=== PATIENT | female | born 1950 | race Caucasian/White ===

== ENCOUNTER → 2016-08-03 | Outpatient (CLI) | payer OTHER ==
--- NOTE | 2016-08-03 09:49 | CT ---
EXAMINATION TYPE: CT ChestAbdPelvis w con DATE OF EXAM: 08/03/2016 9:40 AM COMPARISON: 04/20/2016 HISTORY: Patient complains of RUQ pain. Patient has had multiple surgeries in the liver area includi ng partial hepatectomy. CT DLP: 2030 mGycm CONTRAST: CT scan of the chest, abdomen and pelvis is performed with Oral Contrast and with IV Contrast, patien t injected with 100 mL of Omnipaque 300. CT Chest: LUNGS: The lungs are clear and free of infiltrate or atelectasis. Stable right lower lobe pulmonary n odules measuring up to 5 mm. No new nodules identified. Mild upper lobe emphysematous changes appreci ated. No pleural effusion or CT evidence of interstitial lung disease. MEDIASTINUM: Thoracic aorta is of normal caliber. The heart is not enlarged. No evidence for media stinal mass or adenopathy. HILAR STRUCTURES: No evidence for mass. No hilar adenopathy is appreciated. OTHER: No significant abnormality. CONTRAST CT ABDOMEN AND PELVIS FINDINGS: LIVER/GB: Again noted are hepatectomy changes left hepatic lobe. Cholecystectomy clips are in place. Resolution of pneumobilia seen previously. No evidence for mass or biliary ductal dilatation at this time. PANCREAS: No inflammation. No distinct mass. SPLEEN: No splenic enlargement. No lesion seen. ADRENALS: No nodule. No thickening. KIDNEYS/BLADDER: No hydronephrosis. No nephrolithiasis. No disctinct renal mass. BOWEL: Normal appendix. Normal bowel caliber. No inflammation. GENITAL ORGANS: No gross abnormality. LYMPH NODES: No greater than 1cm abdominal or pelvic lymph nodes are appreciated. AORTA: Nonaneurysmal atheromatous changes abdominal aorta. OSSEOUS STRUCTURES: No significant abnormality is seen. OTHER: Fat-containing ventral hernia is unchanged. IMPRESSION: 1. Postoperative changes of the liver without evidence for recurrent or residual mass. 2. Stable right lower lobe pulmonary nodules.
== END | disposition home or self-care (01) ==
LOC: RADCTMAIN 08:37
PROVIDERS: ATTEND Internal Medicine Hematology & Oncology
DX: C24.9 Malignant neoplasm of biliary tract, unspecified (principal); R91.1 Solitary pulmonary nodule; Z98.890 Other specified postprocedural states
CPT/HCPCS: 71260; 74177; Q9967

== ENCOUNTER → 2016-11-09 | Outpatient (CLI) | payer OTHER ==
--- NOTE | 2016-11-09 08:44 | CT ---
EXAMINATION TYPE: CT ChestAbdPelvis w con DATE OF EXAM: 11/09/2016 8:33 AM COMPARISON: Previous study dated 08/03/2016. 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 TECHNIQUE: Helical acquisition through the abdomen and pelvis was obtained without oral contrast but following the intravenous administration of 100 ml mL of Omnipaque 300. The data was formatted in th e axial, coronal and sagittal projections. FINDINGS: There is a stable 5 mm nodule in this superior segment of the right lower lobe, best seen o n image 38. There is a 9 mm nodule in the posterior basal segment of the right lower lobe best seen o n image 56. This is also stable. No new parenchymal lesion is seen. There is no significant axillary, internal mammary, mediastinal or hilar adenopathy. There is no pleu ral or pericardial fluid. The heart is not enlarged. Within the abdomen, there is been a a left hepatectomy. The gallbladder has been removed. No parenchy mal masses are seen. The spleen is unremarkable. Both adrenal glands appear normal. There is a stable, 1 cm hypoattenuating lesion in the lower pole of the right kidney, this may repres ent a cyst. The pancreas is unremarkable. There is some shotty periaortic adenopathy. No pathologically enlarged retroperitoneal, iliac or ingu inal adenopathy is seen. The uterus is unremarkable. The ovaries are not visualized with certainty. The bladder is unremarkable. There is mucosal thickening involving the distal sigmoid colon. There are scattered diverticula throu ghout the left side of the colon. I do not see radiographic evidence of diverticulitis. The appendix is not visualized. There is a ventral hernia containing fat. The transverse colon is peaking into this. The mouth measur es 4.2 cm. No free fluid and no free air is seen. There is facet arthropathy in the lower lumbar spine. There is minor hypertrophic spondylosis within the dorsal spine. There is moderate atheromatous calcification of the distal abdominal aorta and iliac vessels. IMPRESSION: 1. STABLE RIGHT LOWER LOBE PULMONARY NODULES. 2. POSTSURGICAL CHANGES. 3. NO EVIDENCE OF RECURRENT OR METASTATIC DISEASE. 4. FOCAL COLONIC THICKENING IN THE DISTAL SIGMOID. DIRECT VISUALIZATION WOULD BE SUGGESTED. 5. PROBABLE CYST SMALL CYST IN THE LOWER POLE OF THE RIGHT KIDNEY. 6. VENTRAL HERNIA CONTAINING FAT WITH A MOUTH MEASURING 4.2 CM. 7. DEGENERATIVE CHANGES WITHIN THE SPINE.
== END | disposition home or self-care (01) ==
LOC: RADCTMAIN 07:24
PROVIDERS: ATTEND Internal Medicine Hematology & Oncology
DX: R91.1 Solitary pulmonary nodule (principal); C24.8 Malignant neoplasm of overlapping sites of biliary tract; J98.4 Other disorders of lung; K43.9 Ventral hernia without obstruction or gangrene; K63.89 Other specified diseases of intestine; Z98.890 Other specified postprocedural states; Z88.0 Allergy status to penicillin; Z88.5 Allergy status to narcotic agent; Z88.2 Allergy status to sulfonamides; Z88.8 Allergy status to other drugs, medicaments and biological substances
CPT/HCPCS: 71260; 74177; Q9967

== ENCOUNTER 2016-11-26 09:55 | Emergency (ER) | payer OTHER ==
[2016-11-26] MEDS ORDERED: SODIUM CHLORIDE 0.9% 1,000 ML IV STA ×2 (10:28)
[2016-11-26] MEDS ORDERED: METOCLOPRAMIDE 5 MG/ML 2 ML VIAL IVP STA (10:28)
[2016-11-26] MEDS ORDERED: HYDROmorphone 1 MG/ML 1 ML SYRINGE IVP STA (10:28)
--- NOTE | 2016-11-26 10:33 | ED ---
General Adult HPI - General Chief complaint: Abdominal Pain Stated complaint: diarrhea Time Seen by Provider: 11/26/16 10:07 Source: patient, RN notes reviewed Mode of arrival: ambulatory Limitations: no limitations - History of Present Illness Initial comments: Complaint history of present illness is a 66-year-old female complaint of diarrhea for one week. Also right sided abdominal pain ongoing for months. Significant history patient had hilar cholangiocarcinoma. Follow-up with surgery 11 months ago chemo and radiation. No nausea no vomiting chest exposed diarrhea - Related Data Home Medications Medication Instructions Recorded Confirmed Cholecalciferol (Vitamin D3) 2,000 unit PO DAILY 11/26/16 11/26/16 [Vitamin D3] Cyanocobalamin [Vitamin B-12] 500 mcg PO DAILY 11/26/16 11/26/16 Ibuprofen [Motrin] 200 mg PO Q6HR PRN 11/26/16 11/26/16 Lysine 500 mg PO DAILY 11/26/16 11/26/16 Vitamin C/Biotin [Hair, Skin and 1 tab PO DAILY 11/26/16 11/26/16 Nails] Allergies Allergy/AdvReac Type Severity Reaction Status Date / Time amoxicillin [From Augmentin] Allergy Unknown Verified 11/26/16 12:51 clavulanic acid Allergy Unknown Verified 11/26/16 12:51 [From Augmentin] Iodinated Contrast Media - Allergy Unknown Verified 11/26/16 12:51 Oral and Sulfa (Sulfonamide Allergy Unknown Verified 11/26/16 12:51 Antibiotics) Review of Systems ROS Statement: Those systems with pertinent positive or pertinent negative responses have been documented in the HPI. Review of systems no visual acuity changes no headache no stiff neck no chest pain or shortness of breath she has discomfort to the right side of the abdomen which is ongoing for several months. For the past week she's had explosive diarrhea. Mild low back discomfort. No difficulty urinating. No rashes. No neuro deficits. All systems are reviewed. 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 Patient also surgeries include appendectomy . Family history heart disease. Patient has seasonal ALLERGIES and certain tapes adhesives. She does smoke she is encouraged to stop. Denies alcohol use ALLERGIES include iodine and Augmentin. ROS Other: All systems not noted in ROS Statement are negative. Past Medical History Past Medical History: Cancer, Liver Disease History of Any Multi-Drug Resistant Organisms: None Reported Past Surgical History: Appendectomy, Section Additional Past Surgical History / Comment(s): liver gallbladder ca surg eye nasel Past Psychological History: No Psychological Hx Reported Smoking Status: Light tobacco smoker Past Alcohol Use History: None Reported Past Drug Use History: None Reported General Exam - General Exam Comments Initial Comments: General: The patient is awake and alert, complains of pain to the right side of the abdomen ongoing for several months as well as explosive diarrhea for 7 days. Vital signs shows temperature 98.2 pulse 92 respiratory rate 18 pulse ox 99% room air blood pressure 158/80 Eye: Pupils are equal, round and reactive to light, extra-ocular movements are intact ; there is normal conjunctiva bilaterally. No signs of icterus. Mild exophthalmus. But the patient does not have thyroid disease per patient. Ears, nose, mouth and throat: There are moist mucous membranes and no oral lesions. Neck: The neck is supple, there is no tenderness . Cardiovascular: There is a regular rate and rhythm. No murmur, rub or gallop is appreciated. Respiratory: Lungs are clear to auscultation, respirations are non-labored, breath sounds are equal. No wheezes, stridor, rales, or rhonchi. Gastrointestinal: Patient complains of pain to the right side of the abdomen. No rebound or referred pain to that general area. Voluntary guarding noted in that area. Patient doesn't allow deep enough palpation. Examination of palpable masses. Back: There is no tenderness to palpation in the midline. There is no obvious deformity. No rashes noted. Musculoskeletal: Normal ROM, no tenderness, There is no pedal edema. There is no calf tenderness or swelling. Sensation intact. Neurological: CN II-XII intact, There are no obvious motor or sensory deficits. Coordination appears grossly intact. Speech is normal. No neuro deficits. Skin: Skin is warm and dry and no rashes or lesions are noted. Limitations: no limitations Course Vital Signs 11/26/16 11/26/16 11/26/16 09:57 11:42 13:48 Temperature 98.2 F 97.6 F Pulse Rate 92 87 69 Respiratory 18 18 16 Rate Blood Pressure 158/80 137/73 130/67 O2 Sat by Pulse 99 98 99 Oximetry Medical Decision Making - Medical Decision Making Medical decision-making the patient is receiving IV hydration. The patient's labs show white count of 6.1 hemoglobin 13 hematocrit of 40 with a potassium 4.7 BUN 8 creatinine 0.8 GFR greater than 60. Glucose 145. Amylase lipase within normal limits lactic acid elevated the patient be rehydrated. Urine was clean no signs of infection. X-ray of the abdomen was done reviewed by radiologist his final impression is nonacute abdomen as read by Dr. Beatty The patient was reevaluated and states she feels much better sitting up in bed leaning forward talking her wants to go home at this time. Denying abdominal pain at this time . We did discuss continue with her fluids. Her stool for C. diff negative. She will be trying Pepto-Bismol today and Imodium to be added tomorrow as needed. The patient is to return emergency room if she develops a fever or any other problems otherwise call follow up with her family physician, and her oncologist. Still waiting for cultures of the stool to come back. - Lab Data Result diagrams: 11/26/16 11:35 11/26/16 11:35 Lab Results 11/26/16 11/26/16 11/26/16 Range/Units 10:55 11:35 11:35 WBC 6.1 (3.8-10.6) k/uL RBC 4.44 (3.80-5.40) m/uL Hgb 13.9 (11.4-16.0) gm/dL Hct 40.7 (34.0-46.0) % MCV 91.7 (80.0-100.0) fL MCH 31.4 (25.0-35.0) pg MCHC 34.2 (31.0-37.0) g/dL RDW 13.5 (11.5-15.5) % Plt Count 129 L (150-450) k/uL Neutrophils % 76 % Lymphocytes % 12 % Monocytes % 7 % Eosinophils % 4 % Basophils % 1 % Neutrophils # 4.7 (1.3-7.7) k/uL Lymphocytes # 0.7 L (1.0-4.8) k/uL Monocytes # 0.4 (0-1.0) k/uL Eosinophils # 0.2 (0-0.7) k/uL Basophils # 0.0 (0-0.2) k/uL Sodium 140 (137-145) mmol/L Potassium 4.7 (3.5-5.1) mmol/L Chloride 110 H (98-107) mmol/L Carbon Dioxide 22 (22-30) mmol/L Anion Gap 8 mmol/L BUN 8 (7-17) mg/dL Creatinine 0.80 (0.52-1.04) mg/dL Est GFR (MDRD) Af Amer >60 (>60 ml/min/1.73 sqM) Est GFR (MDRD) Non-Af >60 (>60 ml/min/1.73 sqM) Glucose 145 H (74-99) mg/dL Plasma Lactic Acid Faizan (0.7-2.0) mmol/L Calcium 9.0 (8.4-10.2) mg/dL Total Bilirubin 0.7 (0.2-1.3) mg/dL AST 28 (14-36) U/L ALT 31 (9-52) U/L Alkaline Phosphatase 78 (38-126) U/L Total Protein 6.5 (6.3-8.2) g/dL Albumin 3.8 (3.5-5.0) g/dL Amylase 42 (30-110) U/L Lipase 90 (23-300) U/L Urine Color Light Yellow Urine Appearance Clear (Clear) Urine pH 5.5 (5.0-8.0) Ur Specific [place] 1.002 (1.001-1.035) Urine Protein Negative (Negative) Urine Glucose (UA) Negative (Negative) Urine Ketones Negative (Negative) Urine Blood Negative (Negative) Urine Nitrite Negative (Negative) Urine Bilirubin Negative (Negative) Urine Urobilinogen <2.0 (<2.0) mg/dL Ur Leukocyte Esterase Negative (Negative) C. difficile (EIA) Intrp (Negative) 11/26/16 11/26/16 Range/Units 11:35 11:50 WBC (3.8-10.6) k/uL RBC (3.80-5.40) m/uL Hgb (11.4-16.0) gm/dL Hct (34.0-46.0) % MCV (80.0-100.0) fL MCH (25.0-35.0) pg MCHC (31.0-37.0) g/dL RDW (11.5-15.5) % Plt Count (150-450) k/uL Neutrophils % % Lymphocytes % % Monocytes % % Eosinophils % % Basophils % % Neutrophils # (1.3-7.7) k/uL Lymphocytes # (1.0-4.8) k/uL Monocytes # (0-1.0) k/uL Eosinophils # (0-0.7) k/uL Basophils # (0-0.2) k/uL Sodium (137-145) mmol/L Potassium (3.5-5.1) mmol/L Chloride (98-107) mmol/L Carbon Dioxide (22-30) mmol/L Anion Gap mmol/L BUN (7-17) mg/dL Creatinine (0.52-1.04) mg/dL Est GFR (MDRD) Af Amer (>60 ml/min/1.73 sqM) Est GFR (MDRD) Non-Af (>60 ml/min/1.73 sqM) Glucose (74-99) mg/dL Plasma Lactic Acid Faizan 3.0 H* (0.7-2.0) mmol/L Calcium (8.4-10.2) mg/dL Total Bilirubin (0.2-1.3) mg/dL AST (14-36) U/L ALT (9-52) U/L Alkaline Phosphatase (38-126) U/L Total Protein (6.3-8.2) g/dL Albumin (3.5-5.0) g/dL Amylase (30-110) U/L Lipase (23-300) U/L Urine Color Urine Appearance (Clear) Urine pH (5.0-8.0) Ur Specific [place] (1.001-1.035) Urine Protein (Negative) Urine Glucose (UA) (Negative) Urine Ketones (Negative) Urine Blood (Negative) Urine Nitrite (Negative) Urine Bilirubin (Negative) Urine Urobilinogen (<2.0) mg/dL Ur Leukocyte Esterase (Negative) C. difficile (EIA) Intrp Negative (Negative) Disposition Clinical Impression: Diarrhea Disposition: HOME SELF-CARE Condition: Stable Instructions: Dehydration (ED), Acute Diarrhea (ED) Additional Instructions: Continue with advancing fluids. Use Pepto-Bismol. Use Imodium after 24 hours as needed. Return to the be signs of an fever or discomfort. Otherwise follow- up with family physician and your oncologist. Referrals: Breann Morrison MD [Primary Care Provider] - 1-2 days Time of Disposition: 14:14
[2016-11-26 11:13] LABS: Appearance,Urine Clear (Clear); Bilirubin,Urine Negative (Negative); Glucose,Urine (UA) Negative (Negative); Ketones,Urine Negative (Negative); Leukocyte Esterase,Urine Negative (Negative); Nitrite,Urine Negative (Negative); PH, Urine 5.5 (5.0-8.0); Protein,Urine Negative (Negative); Specific Gravity,Urine 1.002 (1.001-1.035); UA Billing (MACRO vs. MICRO) CHEM; Urobilinogen,Urine <2.0 mg/dL (<2.0)
[2016-11-26 11:48] LABS: Basophils % (A) 1 %; CH 30.9; CHCM 33.9; Eosinophils # (A) 0.2 k/uL (0-0.7); Eosinophils % (A) 4 %; HCT 40.7 % (34.0-46.0); HDW 2.71; HGB 13.9 gm/dL (11.4-16.0); Luc # (Auto) 0.09; Luc % (Auto) 1; Lymphocytes # (A) 0.7 k/uL (1.0-4.8); Lymphocytes % (A) 12 %; MCH 31.4 pg (25.0-35.0); MCHC 34.2 g/dL (31.0-37.0); MCV 91.7 fL (80.0-100.0); Mean Platelet Volume 7.3; Monocytes # (A) 0.4 k/uL (0-1.0); Monocytes % (A) 7 %; Neutrophils # (A) 4.7 k/uL (1.3-7.7); Neutrophils % (A) 76 %; RBC 4.44 m/uL (3.80-5.40); RDW 13.5 % (11.5-15.5); WBC 6.1 k/uL (3.8-10.6); WBC (Perox) 6.42
[2016-11-26 11:58] LABS: ALT 31 U/L (9-52); AST 28 U/L (14-36); Alkaline Phosphatase 78 U/L (38-126); Amylase 42 U/L (30-110); Anion Gap 8 mmol/L; Blood Urea Nitrogen 8 mg/dL (7-17); Carbon Dioxide 22 mmol/L (22-30); Chloride 110 mmol/L (98-107); Glucose 145 mg/dL (74-99); Non-African American GFR(MDRD) >60 (>60 ml/min/1.73 sqM); Potassium 4.7 mmol/L (3.5-5.1); Sodium 140 mmol/L (137-145); Total Bilirubin 0.7 mg/dL (0.2-1.3); Total Protein 6.5 g/dL (6.3-8.2)
--- NOTE | 2016-11-26 12:08 | XR ---
EXAMINATION TYPE: XR abdomen 2V DATE OF EXAM: 11/26/2016 12:03 PM COMPARISON: None HISTORY: Abdominal pain TECHNIQUE: 2 views FINDINGS: Bowel gas pattern is normal. There is no sign of intestinal obstruction or pneumoperitoneum . Fecal pattern is normal. There are clips from cholecystectomy. Lung bases are clear. There are no p athologic calcifications over the kidneys. IMPRESSION: Nonacute abdomen.
[2016-11-26] MEDS ORDERED: SODIUM CHLORIDE 0.9% 500 ML IV ONE (12:14)
[2016-11-26 14:24] VITALS: BP 142/64; PULSE 67; RESP 18; TEMP 97.7
== END 2016-11-26 14:24 | disposition home or self-care (01) ==
LOC: EC 09:55
DX: R19.7 Diarrhea, unspecified (principal); R10.9 Unspecified abdominal pain; F17.200 Nicotine dependence, unspecified, uncomplicated; Z85.05 Personal history of malignant neoplasm of liver; Z90.49 Acquired absence of other specified parts of digestive tract; Z98.890 Other specified postprocedural states; Z79.899 Other long term (current) drug therapy; Z88.0 Allergy status to penicillin; Z88.2 Allergy status to sulfonamides; Z91.041 Radiographic dye allergy status
CPT/HCPCS: 99284; 36415; 80053; 82150; 83605; 83690; 85025; 81003; 87324; 87086; 87045; 87046; 74020; 96374; 96375; 96361 ×4; J2765; J1170

== ENCOUNTER 2016-11-28 11:14 | Inpatient (IN) | payer OTHER ==
[2016-11-28] MEDS ORDERED: HYDROmorphone 1 MG/ML 1 ML SYRINGE IVP STA (13:20)
[2016-11-28] MEDS ORDERED: SODIUM CHLORIDE 0.9% 1,000 ML IV ONE (13:20)
--- NOTE | 2016-11-28 13:21 | ED ---
Abdominal Pain HPI <Hayden Shen - Last Filed: 11/28/16 15:34> - General Source: patient, RN notes reviewed Mode of arrival: ambulatory Limitations: no limitations <Shelly Kim - Last Filed: 11/28/16 16:16> - General Chief Complaint: Abdominal Pain Stated Complaint: POST OP, PAIN AND DIARRHEA, Ca PATIENT Time Seen by Provider: 11/28/16 12:44 - History of Present Illness Initial Comments: Patient is a 66-year-old female presents emergency room for evaluation abdominal pain and diarrhea. Patient was here on Saturday for abdominal pain and diarrhea. Patient states she was sent home after given 2 L of fluids. Patient states she has hilar cholangiocarcinoma. Patient states she had surgical removal about 11 months ago. Patient states she also had radiation and chemotherapy. Patient states within 4 months of radiation/chemotherapy she began developing right lower quadrant pain. Patient states she has CT scans every 3 months. Patient states her last computed tomography scan was about 3 weeks ago. Patient states she followed up with Dr. Cleary about 2 weeks ago and was told that there were no abnormal findings. Patient states she still continued to have the right lower quadrant pain. Patient states after she was discharged on Saturday she was continuing to have pain and diarrhea. Patient states been taking Pepto-Bismol with little relief of symptoms. Patient states she called Dr. Cleary today and was told that she needs to come to the hospital to be admitted. She states she is having diarrhea multiple times during the day. Patient states she feels like she is dehydrated again. Patient states she is having 9 out of 10 right lower quadrant pain is worse with movement and pressing over the area. Patient denies fevers or chills. Patient denies nausea vomiting. Patient denies chest pain or shortness of breath. (Shelly Kim) - Related Data Home Medications Medication Instructions Recorded Confirmed Cholecalciferol (Vitamin D3) 2,000 unit PO DAILY 11/26/16 11/28/16 [Vitamin D3] Cyanocobalamin [Vitamin B-12] 500 mcg PO DAILY 11/26/16 11/28/16 Ibuprofen [Motrin] 200 mg PO Q6HR PRN 11/26/16 11/28/16 Lysine 500 mg PO DAILY 11/26/16 11/28/16 Vitamin C/Biotin [Hair, Skin and 1 tab PO DAILY 11/26/16 11/28/16 Nails] Allergies Allergy/AdvReac Type Severity Reaction Status Date / Time amoxicillin [From Augmentin] Allergy Unknown Verified 11/28/16 12:07 clavulanic acid Allergy Unknown Verified 11/28/16 12:07 [From Augmentin] Iodinated Contrast Media - Allergy Unknown Verified 11/28/16 12:07 Oral and Sulfa (Sulfonamide Allergy Unknown Verified 11/28/16 12:07 Antibiotics) Review of Systems ROS Other: All systems not noted in ROS Statement are negative. <Hayden Shen - Last Filed: 11/28/16 15:34> ROS Other: All systems not noted in ROS Statement are negative. <Shelly Kim - Last Filed: 11/28/16 16:16> ROS Statement: Those systems with pertinent positive or pertinent negative responses have been documented in the HPI. Past Medical History Past Medical History: Cancer, Liver Disease History of Any Multi-Drug Resistant Organisms: None Reported Past Surgical History: Appendectomy, Section Additional Past Surgical History / Comment(s): liver gallbladder ca surg , eye , nasal Past Psychological History: No Psychological Hx Reported Smoking Status: Light tobacco smoker Past Alcohol Use History: None Reported Past Drug Use History: None Reported <Shelly Kim - Last Filed: 11/28/16 16:16> General Exam <Hayden Shen - Last Filed: 11/28/16 15:34> Limitations: no limitations General appearance: alert, in no apparent distress Head exam: Present: atraumatic, normocephalic, normal inspection Eye exam: Present: normal appearance ENT exam: Present: normal exam Neck exam: Present: normal inspection Respiratory exam: Present: normal lung sounds bilaterally. Absent: respiratory distress Cardiovascular Exam: Present: regular rate, normal rhythm, normal heart sounds GI/Abdominal exam: Present: soft, tenderness (Right lower quadrant), normal bowel sounds. Absent: distended, guarding, rebound, rigid Extremities exam: Present: normal inspection Back exam: Present: normal inspection Neurological exam: Present: alert, oriented X3, CN II-XII intact, normal gait Psychiatric exam: Present: normal affect, normal mood Skin exam: Present: warm, dry, intact, normal color. Absent: rash <Shelly Kim - Last Filed: 11/28/16 16:16> - General Exam Comments Initial Comments: sitting in exam room, no acute distress. (Shelly Kim) Medical Decision Making - Lab Data Result diagrams: 11/28/16 12:20 11/28/16 12:20 <Hayden Shen - Last Filed: 11/28/16 15:34> - Lab Data Result diagrams: 11/28/16 12:20 11/28/16 12:20 <Shelly Kim - Last Filed: 11/28/16 16:16> - Medical Decision Making Medical decision-making. The patient was reexamined with mild tenderness to right lower quadrant. The patient was examined and interviewed by Dr. Evans. Patient will be admitted to his partner Dr. Rivera her period started on Flagyl. With repeat C. diff. He is also requesting a consultation from Dr. Lopez, the patient's general surgeon who has done colonoscopy on her in the past. Dr. Shen (Hayden Shen) - Lab Data Lab Results 11/28/16 11/28/16 11/28/16 Range/Units 11:50 12:20 12:20 WBC 4.6 (3.8-10.6) k/uL RBC 4.52 (3.80-5.40) m/uL Hgb 13.9 (11.4-16.0) gm/dL Hct 42.8 (34.0-46.0) % MCV 94.7 (80.0-100.0) fL MCH 30.6 (25.0-35.0) pg MCHC 32.4 (31.0-37.0) g/dL RDW 14.0 (11.5-15.5) % Plt Count 140 L (150-450) k/uL Neutrophils % 72 % Lymphocytes % 14 % Monocytes % 8 % Eosinophils % 4 % Basophils % 1 % Neutrophils # 3.3 (1.3-7.7) k/uL Lymphocytes # 0.7 L (1.0-4.8) k/uL Monocytes # 0.3 (0-1.0) k/uL Eosinophils # 0.2 (0-0.7) k/uL Basophils # 0.0 (0-0.2) k/uL Sodium (137-145) mmol/L Potassium (3.5-5.1) mmol/L Chloride (98-107) mmol/L Carbon Dioxide (22-30) mmol/L Anion Gap mmol/L BUN (7-17) mg/dL Creatinine (0.52-1.04) mg/dL Est GFR (MDRD) Af Amer (>60 ml/min/1.73 sqM) Est GFR (MDRD) Non-Af (>60 ml/min/1.73 sqM) Glucose (74-99) mg/dL Plasma Lactic Acid Faizan (0.7-2.0) mmol/L Calcium (8.4-10.2) mg/dL Total Bilirubin (0.2-1.3) mg/dL AST (14-36) U/L ALT (9-52) U/L Alkaline Phosphatase (38-126) U/L Total Protein (6.3-8.2) g/dL Albumin (3.5-5.0) g/dL Amylase (30-110) U/L Lipase 87 (23-300) U/L Urine Color Colorless Urine Appearance Clear (Clear) Urine pH 5.5 (5.0-8.0) Ur Specific [place] 1.002 (1.001-1.035) Urine Protein Negative (Negative) Urine Glucose (UA) Negative (Negative) Urine Ketones Negative (Negative) Urine Blood Negative (Negative) Urine Nitrite Negative (Negative) Urine Bilirubin Negative (Negative) Urine Urobilinogen <2.0 (<2.0) mg/dL Ur Leukocyte Esterase Negative (Negative) 11/28/16 11/28/16 Range/Units 12:20 12:20 WBC (3.8-10.6) k/uL RBC (3.80-5.40) m/uL Hgb (11.4-16.0) gm/dL Hct (34.0-46.0) % MCV (80.0-100.0) fL MCH (25.0-35.0) pg MCHC (31.0-37.0) g/dL RDW (11.5-15.5) % Plt Count (150-450) k/uL Neutrophils % % Lymphocytes % % Monocytes % % Eosinophils % % Basophils % % Neutrophils # (1.3-7.7) k/uL Lymphocytes # (1.0-4.8) k/uL Monocytes # (0-1.0) k/uL Eosinophils # (0-0.7) k/uL Basophils # (0-0.2) k/uL Sodium 142 (137-145) mmol/L Potassium 3.7 (3.5-5.1) mmol/L Chloride 106 (98-107) mmol/L Carbon Dioxide 26 (22-30) mmol/L Anion Gap 10 mmol/L BUN 8 (7-17) mg/dL Creatinine 0.66 (0.52-1.04) mg/dL Est GFR (MDRD) Af Amer >60 (>60 ml/min/1.73 sqM) Est GFR (MDRD) Non-Af >60 (>60 ml/min/1.73 sqM) Glucose 90 (74-99) mg/dL Plasma Lactic Acid Faizan 0.8 (0.7-2.0) mmol/L Calcium 9.2 (8.4-10.2) mg/dL Total Bilirubin 0.6 (0.2-1.3) mg/dL AST 33 (14-36) U/L ALT 41 (9-52) U/L Alkaline Phosphatase 86 (38-126) U/L Total Protein 6.6 (6.3-8.2) g/dL Albumin 3.8 (3.5-5.0) g/dL Amylase 42 (30-110) U/L Lipase (23-300) U/L Urine Color Urine Appearance (Clear) Urine pH (5.0-8.0) Ur Specific [place] (1.001-1.035) Urine Protein (Negative) Urine Glucose (UA) (Negative) Urine Ketones (Negative) Urine Blood (Negative) Urine Nitrite (Negative) Urine Bilirubin (Negative) Urine Urobilinogen (<2.0) mg/dL Ur Leukocyte Esterase (Negative) Disposition <Hayden Shen - Last Filed: 11/28/16 15:34> Decision Date: 11/28/16 <Shelly Kim - Last Filed: 11/28/16 16:16> Clinical Impression: Colitis presumed to be due to infection Disposition: ADMITTED IP TO THIS [facility] Condition: Stable
[2016-11-28 14:04] LABS: Basophils % (A) 1 %; CH 31.1; Eosinophils # (A) 0.2 k/uL (0-0.7); Eosinophils % (A) 4 %; HCT 42.8 % (34.0-46.0); HDW 2.59; HGB 13.9 gm/dL (11.4-16.0); Luc # (Auto) 0.07; Luc % (Auto) 2; Lymphocytes # (A) 0.7 k/uL (1.0-4.8); Lymphocytes % (A) 14 %; MCH 30.6 pg (25.0-35.0); MCHC 32.4 g/dL (31.0-37.0); MCV 94.7 fL (80.0-100.0); Mean Platelet Volume 7.7; Monocytes # (A) 0.3 k/uL (0-1.0); Monocytes % (A) 8 %; Neutrophils # (A) 3.3 k/uL (1.3-7.7); Neutrophils % (A) 72 %; RBC 4.52 m/uL (3.80-5.40); WBC 4.6 k/uL (3.8-10.6); WBC (Perox) 4.52
[2016-11-28 14:05] LABS: Appearance,Urine Clear (Clear); Bilirubin,Urine Negative (Negative); Glucose,Urine (UA) Negative (Negative); Ketones,Urine Negative (Negative); Leukocyte Esterase,Urine Negative (Negative); Nitrite,Urine Negative (Negative); PH, Urine 5.5 (5.0-8.0); Protein,Urine Negative (Negative); Specific Gravity,Urine 1.002 (1.001-1.035); UA Billing (MACRO vs. MICRO) CHEM; Urobilinogen,Urine <2.0 mg/dL (<2.0)
[2016-11-28 14:14] LABS: ALT 41 U/L (9-52); AST 33 U/L (14-36); Alkaline Phosphatase 86 U/L (38-126); Amylase 42 U/L (30-110); Anion Gap 10 mmol/L; Blood Urea Nitrogen 8 mg/dL (7-17); Calcium 9.2 mg/dL (8.4-10.2); Carbon Dioxide 26 mmol/L (22-30); Chloride 106 mmol/L (98-107); Glucose 90 mg/dL (74-99); Non-African American GFR(MDRD) >60 (>60 ml/min/1.73 sqM); Potassium 3.7 mmol/L (3.5-5.1); Sodium 142 mmol/L (137-145); Total Bilirubin 0.6 mg/dL (0.2-1.3); Total Protein 6.6 g/dL (6.3-8.2)
[2016-11-28 14:30] VITALS: RESP 16
[2016-11-28] MEDS ORDERED: NALOXONE 0.4 MG/ML 1 ML VIAL IV PRN (15:34)
[2016-11-28] MEDS ORDERED: ONDANSETRON 4 MG/2 ML VIAL IVP PRN (15:34)
[2016-11-28] MEDS ORDERED: metroNIDAZOLE-NS PMX 500 MG in SALINE 1 100ML.BAG IVPB STA (15:36)
--- NOTE | 2016-11-28 16:57 | P.HPIM ---
History of Present Illness H&P Date: 11/28/16 Chief Complaint: Abdominal pain, infectious colitis, history of biliary carcinoma, severe di 66-year-old female late 2015 was diagnosed with cholangiocarcinoma ended up going to [facility] had surgery similar to Whipple ended up having wider area resection including gallbladder heart of the liver the biliary tree and part of her gastrointestinal tract. Patient was referred to oncology and has been seen Dr. Cleary all along. She presented to the emergency department on with recurrent diarrhea with abdominal pain and right lower quadrant discomfort. Her abdominal x-ray and lab and lactic acid were elevated but she was hydrated and felt better decided to go home that time. Patient called her oncologist today complaining of recurrent abdominal pain with worsening symptoms having very bad diarrhea with slight bleeding with her diarrhea occasionally. Review her CAT scan showed some colitis around the sigmoid area. With the severity of her symptoms with the recurrent diarrhea and still high suspicion for C. difficile and infectious colitis patient was started on Flagyl IV hydration and admitted to the hospital we'll consult general surgery per her oncologist recommendation. Review of Systems Constitutional: Reports anorexia, Reports fatigue, Reports malaise, Reports weight loss, Denies as per HPI, Denies chills, Denies chronic headaches, Denies chronic pain, Denies daytime sleepiness, Denies fever, Denies lethargy, Denies night sweats, Denies poor appetite, Denies sweats, Denies weakness, Denies weight gain Eyes: bilateral as per HPI Ears: bilateral: decreased hearing Ears, nose, mouth and throat: Reports nasal discharge, Reports sinus pain, Reports sinus pressure, Denies as per HPI, Denies ant. neck pain, Denies bleeding gums, Denies dental pain, Denies dysphagia, Denies epistaxis, Denies headache, Denies hoarseness, Denies mouth pain, Denies nasal congestion, Denies neck fullness/pressure, Denies neck lump, Denies nose pain, Denies odynophagia, Denies post-nasal drip, Denies swelling in mouth, Denies swelling in throat, Denies sore throat, Denies vertigo, Denies voice changes Cardiovascular: Reports orthopnea, Denies as per HPI, Denies chest pain, Denies claudication, Denies decreased exercise tolerance, Denies dyspnea on exertion, Denies edema, Denies high blood pressure, Denies irregular heart beat, Denies leg edema, Denies lightheadedness, Denies palpitations, Denies paroxysmal nocturnal dyspnea, Denies phlebitis, Denies rapid heart beat, Denies shortness of breath, Denies syncope Respiratory: Reports congestion, Reports cough, Reports dyspnea, Denies as per HPI, Denies cough with sputum, Denies excessive sputum, Denies hemoptysis, Denies home oxygen, Denies pain, Denies pain on inspiration, Denies pleurisy, Denies respiratory infections, Denies sleep apnea, Denies snoring, Denies wheezing Gastrointestinal: Reports bloating, Reports diarrhea, Reports dyspepsia, Reports early satiety, Reports excessive gas, Reports heartburn, Reports indigestion, Reports nausea, Reports vomiting, Denies as per HPI, Denies abdominal pain, Denies belching, Denies BRBPR, Denies change in bowel habits, Denies coffee ground emesis, Denies constipation, Denies hematemesis, Denies hematochezia, Denies jaundice, Denies lactose intolerance, Denies loss of appetite, Denies melena Genitourinary: Reports urgency, Reports urinary frequency, Denies as per HPI, Denies abnormal vaginal bleeding, Denies decreased libido, Denies difficulty conceiving, Denies difficulty voiding, Denies dysmenorrhea, Denies dyspareunia, Denies dysuria, Denies flank pain, Denies genital sores, Denies hematuria, Denies hot flashes, Denies incomplete emptying, Denies kidney stones, Denies menorrhagia, Denies mixed incontinence, Denies nocturia, Denies pelvic pain, Denies post void dribbling, Denies , Denies prolapse symptoms, Denies stress incontinence, Denies urge incontinence, Denies vaginal discharge, Denies vaginal dryness, Denies vaginal itching, Denies vaginal odor Musculoskeletal: Reports myalgias, Reports neck pain, Reports neck stiffness, Denies as per HPI, Denies arm numbness/tingling, Denies atrophy, Denies fractures, Denies frequent falls, Denies gait dysfunction, Denies hot joints, Denies leg numbness/tingling, Denies limitation of motion, Denies loss of height , Denies low back pain, Denies morning stiffness, Denies muscle cramps, Denies muscle weakness, Denies prior amputations, Denies redness of joints, Denies shooting arm pain, Denies shooting leg pain Integumentary: Reports dryness, Reports rash, Denies as per HPI, Denies acne, Denies boils, Denies brittle nails, Denies change in hair/nails, Denies color changes, Denies darkening of skin, Denies depigmentation, Denies foot/leg ulcers , Denies growths, Denies hirsutism, Denies lesions, Denies onychomycosis, Denies pruritus, Denies sores, Denies striae, Denies unusual bruising, Denies wounds Neurological: Reports paresthesias, Reports weakness, Denies as per HPI, Denies aphasia, Denies ataxia, Denies balance difficulties, Denies burning pain, Denies change in mentation, Denies change in smell/taste, Denies change in speech, Denies confusion, Denies convulsions, Denies double vision, Denies gait dysfunction, Denies head injury, Denies headaches, Denies hearing difficulties, Denies lack of coordination, Denies loss of vision, Denies memory loss, Denies migraines, Denies motor disturbance, Denies numbness, Denies paralysis, Denies seizures, Denies sensory deficit, Denies spasticity, Denies syncope, Denies tic , Denies tingling, Denies transient paralysis, Denies tremors, Denies vertigo, Denies visual changes Psychiatric: Reports anhedonia, Reports depression, Denies as per HPI, Denies anxiety, Denies anxiety attacks, Denies change in appetite, Denies change in libido, Denies change in sleep habits, Denies confusion, Denies difficulty concentrating, Denies disorientation, Denies hallucinations, Denies hopelessness , Denies hypersomnia, Denies insomnia, Denies irritability, Denies memory loss, Denies mood swings, Denies paranoia, Denies sadness/tearfulness, Denies sleep disturbances, Denies suicidal ideation Endocrine: Reports cold intolerance, Reports fatigue, Denies as per HPI, Denies deepening of the voice, Denies excessive sweating, Denies excessive thirst, Denies flushing, Denies heat intolerance, Denies high blood sugars, Denies increase in ring/shoe/hat size, Denies low blood sugars, Denies nocturia, Denies palpitations, Denies polydipsia, Denies polyphagia, Denies polyuria, Denies proptosis, Denies recent glucocorticoid use, Denies thyroid mass, Denies weight change Hematologic/Lymphatic: Reports easy bruising, Denies as per HPI, Denies easy bleeding, Denies lymphadenopathy, Denies lymphedema, Denies thrombophilia Allergic/Immunologic: Reports allergic rhinitis, Denies as per HPI, Denies anaphylaxis, Denies angioedema, Denies gluten intolerance, Denies persistent infections, Denies seasonal allergies, Denies urticaria, Denies wheezing Past Medical History Past Medical History: Cancer, Liver Disease History of Any Multi-Drug Resistant Organisms: None Reported Past Surgical History: Appendectomy, Section Additional Past Surgical History / Comment(s): liver gallbladder ca surg , eye , nasal Past Psychological History: No Psychological Hx Reported Smoking Status: Light tobacco smoker Past Alcohol Use History: None Reported Past Drug Use History: None Reported Medications and Allergies Home Medications Medication Instructions Recorded Confirmed Type Cholecalciferol (Vitamin D3) 2,000 unit PO DAILY 11/26/16 11/28/16 History [Vitamin D3] Cyanocobalamin [Vitamin B-12] 500 mcg PO DAILY 11/26/16 11/28/16 History Ibuprofen [Motrin] 200 mg PO Q6HR PRN 11/26/16 11/28/16 History Lysine 500 mg PO DAILY 11/26/16 11/28/16 History Vitamin C/Biotin [Hair, Skin and 1 tab PO DAILY 11/26/16 11/28/16 History Nails] Allergies Allergy/AdvReac Type Severity Reaction Status Date / Time amoxicillin [From Augmentin] Allergy Unknown Verified 11/28/16 12:07 clavulanic acid Allergy Unknown Verified 11/28/16 12:07 [From Augmentin] Iodinated Contrast Media - Allergy Unknown Verified 11/28/16 12:07 Oral and Sulfa (Sulfonamide Allergy Unknown Verified 11/28/16 12:07 Antibiotics) Physical Exam Vitals: Vital Signs Temp Pulse Resp BP Pulse Ox 11/28/16 14:29 98 F 85 16 125/69 97 11/28/16 12:55 71 18 171/84 99 11/28/16 11:45 97.9 F 79 20 125/78 98 Intake and Output 11/28/16 11/28/16 11/28/16 06:59 14:59 22:59 Other: Weight 86.183 kg Patient Weight 11/29/16 06:59 Weight 86.183 kg - Constitutional General appearance: no average body habitus, cooperative, no disheveled, no mild distress, no morbidly obese, no acute distress, no obese, no severe distress, no thin - EENT Eyes: no abnormal pupil, no anicteric sclerae, no disc margins sharp, no edentulous, no EOMI, no PERRLA, no fundus normal, no photophobia, no dentition normal, no poor dentition, no ptosis, no scleral icterus, normal appearance ENT: no hard of hearing, no hearing grossly normal, no NA/AT, normal oropharynx , no other, no pharyngeal erythema, no thrush, no tonsillar exudates, no tonsillar swelling Ears: bilateral: normal - Neck Neck: no lymphadenopathy, normal ROM, no other, no rigidity, no stridor, no thyromegaly Carotids: bilateral: upstroke normal Thyroid: bilateral: normal size - Respiratory Respiratory: bilateral: CTA, diminished, dullness - Cardiovascular Rhythm: regular Heart sounds: normal: S1, S2 Abnormal Heart Sounds: systolic murmur - Gastrointestinal Significant discomfort in the mid lower abdominal area and right lower quadrant area with the scar tissue on the right upper quadrant healing well from her last surgery. Also patient had mild epigastric discomfort. General gastrointestinal: no absent bowel sounds, no decreased bowel sounds, distended, no hepatomegaly, no hyperactive bowel sounds, no normal bowel sounds , organomegaly, no rigid, no scaphoid, no soft, no splenomegaly, tenderness, no umbilical hernia, no ventral hernia Localized gastrointestinal: tender: RLQ - Integumentary Integumentary: no calor, no cellulitis, no cyanotic, no decreased turgor, no flushed, no jaundiced, normal, no normal turgor, pale, rash, no ulcer - Neurologic Neurologic: CNII-XII intact - Musculoskeletal Musculoskeletal: gait normal, generalized weakness, strength equal bilaterally, no right sided weakness, no left sided weakness - Psychiatric Psychiatric: A&O x's 3, appropriate affect, no intact judgment & insight Results CBC & Chem 7: 11/28/16 12:20 11/28/16 12:20 Labs: Abnormal Lab Results - Last 24 Hours (Table) 11/28/16 Range/Units 12:20 Plt Count 140 L (150-450) k/uL Lymphocytes # 0.7 L (1.0-4.8) k/uL Thrombosis Risk Factor Assmnt - DVT/VTE Prophylaxis DVT/VTE Prophylaxis: Mechanical Prophylaxis ordered Assessment and Plan Plan: 1 severe abdominal pain: Most likely combination of colitis, infectious versus ischemic or radiation colitis continue Flagyl continue hydration consult Dr. Lopez patient might need colonoscopy. 2 severe diarrhea: With possible if infectious colitis this could be C. difficile versus other infectious colitis. Patient will be on Flagyl IV for now repeat lactic acid Hemoccult and possible need for GI consult. 3 cholangiocarcinoma: Patient had surgery along with chemotherapy and radiation still been follow with her oncologist regularly for any possible metastasis. 4 elevated blood pressure: Continue low-salt diet no medication at this point. 5 severe GERD/GI prophylaxis: Patient will be on pantoprazole IV. 6 vitamin D deficiency: Has been on supplement therapy. 7 DVT prophylaxis: Knee-high JOSEE hose and Venodyne boots don't use any anticoagulation especially with the GI bleed at this point. CODE STATUS: Full code. Expectation from's admission: Patient in the hospital for more than 2 nights.
[2016-11-28 18:29] VITALS: BMI 28.3
[2016-11-28] MEDS: PANTOPRAZOLE 40 MG/10 ML VIAL IVP SCH (21:55)
[2016-11-28] MEDS: HYDROmorphone 1 MG/ML 1 ML SYRINGE IV PRN (22:01)
[2016-11-28] MEDS: SODIUM CHLORIDE 0.9% 1,000 ML IV SCH (22:02)
[2016-11-29] MEDS: metroNIDAZOLE-NS PMX 500 MG in SALINE 1 100ML.BAG IVPB SCH ×4 (00:36→23:48)
[2016-11-29] MEDS ORDERED: diphenhydrAMINE 25 MG CAP PO PRN (02:44)
[2016-11-29] MEDS: SODIUM CHLORIDE 0.9% 1,000 ML IV SCH ×4 (03:35→23:53)
[2016-11-29 08:17] LABS: Basophils % (A) 0 %; CH 30.7; CHCM 33.6; Eosinophils # (A) 0.2 k/uL (0-0.7); Eosinophils % (A) 7 %; HCT 34.8 % (34.0-46.0); HDW 2.74; HGB 11.7 gm/dL (11.4-16.0); Luc # (Auto) 0.07; Luc % (Auto) 2; Lymphocytes # (A) 0.5 k/uL (1.0-4.8); Lymphocytes % (A) 17 %; MCH 30.7 pg (25.0-35.0); MCHC 33.5 g/dL (31.0-37.0); MCV 91.6 fL (80.0-100.0); Mean Platelet Volume 7.4; Monocytes # (A) 0.3 k/uL (0-1.0); Monocytes % (A) 9 %; Neutrophils % (A) 66 %; RDW 13.4 % (11.5-15.5); WBC (Perox) 3.23
[2016-11-29 08:39] LABS: ALT 33 U/L (9-52); AST 25 U/L (14-36); Alkaline Phosphatase 66 U/L (38-126); Anion Gap 7 mmol/L; Blood Urea Nitrogen 8 mg/dL (7-17); Calcium 8.3 mg/dL (8.4-10.2); Carbon Dioxide 23 mmol/L (22-30); Chloride 111 mmol/L (98-107); Glucose 107 mg/dL (74-99); Non-African American GFR(MDRD) >60 (>60 ml/min/1.73 sqM); Potassium 3.5 mmol/L (3.5-5.1); Sodium 141 mmol/L (137-145); Total Bilirubin 0.7 mg/dL (0.2-1.3); Total Protein 5.4 g/dL (6.3-8.2)
[2016-11-29] MEDS: PANTOPRAZOLE 40 MG/10 ML VIAL IVP SCH (09:18)
[2016-11-29] MEDS ORDERED: ACETAMINOPHEN TAB 325 MG TAB PO PRN (11:34)
[2016-11-29] MEDS: HYDROmorphone 1 MG/ML 1 ML SYRINGE IV PRN ×2 (11:37→21:30)
--- NOTE | 2016-11-29 12:39 | P.GSCN ---
History of Present Illness Consult date: 11/29/16 Reason for Consult: Diarrhea abdominal pain. History of present illness: Thank you very much for asking me to see Mrs. Chau. She is a 66-year-old white female who had a colonoscopy by myself about 2 years ago that was unremarkable. Did have some diverticulosis uncomplicated. She in mid 2015 underwent a Cyn duodenectomy and cholecystectomy partial liver resection and bowel resection for cholangiocarcinoma. Underwent chemoradiation subsequently. Her last chemo treatment was sometime in March. She states the since then she's had the persistent pain in the right lower quadrant area. Workup at that time was unremarkable. She controls pain with Tylenol a few times a week which seems to resolve it. Also having a bowel movement seems to make it feel better. She is maintaining her weight all along. She does feel now somewhat weak. Did have over the last week or so diarrhea. At its worst time she would have a bowel movement about every hour or so and often after meals. Did present to the emergency room a few days ago workup including CAT scan did show evidence of some inflammatory changes in the sigmoid area consistent with probably a colitis type picture. She took Pepto-Bismol full dose of several days ago which stopped the diarrhea completely but however she had a lot of bloating and cramping or fullness. After about 2 days the diarrhea returned once and she took half a dose of the Pepto-Bismol and she hasn't had a bowel movement now for the last 2 days. Continues however to have the pain in the right lower quadrant which seems to be a little worse than it has been before. No vomiting. He is tolerating a diet. Also quite weak with the being lethargic and no energy to do anything over the last several months now. She's had an appendectomy in the past as well as a . Past history of medical history well-documented. ALLERGIES noted. The ALLERGIC to penicillin and sulfa drugs ciprofloxacin. Social history positive for smoking. Denies ethanol usage. She is and lives at home with her . Systems review as above. No chest pain no respiratory problem. No weight loss. Occasional blood in the toilet paper. No urinary symptoms. On examination the patient is well-built well-nourished weighs about 84 kg with a BMI of 28.3. She is in no double acute distress quite cheerful. Color and hydration is satisfactory she is anicteric. Head and neck otherwise normal. Heart lungs are clear. Abdomen is quite soft has a long right subcostal scar as well as a scar in the right lower quadrant and lower abdomen. Mild tenderness in the right lower quadrant but no guarding or rebound or rigidity no mass or organomegaly noted. The remainder of the abdomen is very soft and benign. [employer] grossly intact. Computed tomography scan was noted. No evidence of metastatic disease. Noted. Some thickening in the sigmoid area. Laboratory studies were noted. Lactic acid level is normal now. WBCs normal. Hemoglobin is down to 11.2. Bilirubin is normal. Urinalysis is unremarkable. Stool studies from her previous the ER visit was negative for C. diff. Or any other bacterial infection. Impression : Recent diarrhea now resolved with Pepto-Bismol with evidence of possible sigmoiditis by computed tomography scan. She is probably nonspecific. Chronic right lower quadrant pain well controlled the over the last the 8 months or so Tylenol periodically. Not sure as to the etiology. Probably secondary to adhesive disease or scarring. History of Cholangiocarcinoma status post pancreaticoduodenectomy. Recommendation agree with current management with IV fluids a soft diet the Will R recheck a stool that she has a diarrheal movement. We will hold off with a colonoscopy since she had one 2 years ago unless the she gets more symptomatic with the diarrhea. We will well continue to follow with you. Appreciate again very much the opportunity to see Mrs. Chau in consultation. Past Medical History Past Medical History: Cancer, Liver Disease History of Any Multi-Drug Resistant Organisms: None Reported Past Surgical History: Appendectomy, Section Additional Past Surgical History / Comment(s): liver gallbladder ca surg , eye , nasal Past Anesthesia/Blood Transfusion Reactions: No Reported Reaction Past Psychological History: No Psychological Hx Reported Smoking Status: Light tobacco smoker Past Alcohol Use History: None Reported Past Drug Use History: None Reported - Past Family History Mother Family Medical History: Coronary Artery Disease (CAD) Medications and Allergies Home Medications Medication Instructions Recorded Confirmed Type Cholecalciferol (Vitamin D3) 2,000 unit PO DAILY 11/26/16 11/28/16 History [Vitamin D3] Cyanocobalamin [Vitamin B-12] 500 mcg PO DAILY 11/26/16 11/28/16 History Ibuprofen [Motrin] 200 mg PO Q6HR PRN 11/26/16 11/28/16 History Lysine 500 mg PO DAILY 11/26/16 11/28/16 History Vitamin C/Biotin [Hair, Skin and 1 tab PO DAILY 11/26/16 11/28/16 History Nails] Allergies Allergy/AdvReac Type Severity Reaction Status Date / Time ciprofloxacin Allergy Intermediate Unknown Verified 11/29/16 11:26 amoxicillin [From Augmentin] Allergy Unknown Verified 11/28/16 12:07 clavulanic acid Allergy Unknown Verified 11/28/16 12:07 [From Augmentin] Iodinated Contrast Media - Allergy Unknown Verified 11/28/16 12:07 Oral and Sulfa (Sulfonamide Allergy Unknown Verified 11/28/16 12:07 Antibiotics) Surgical - Exam Vital Signs Temp Pulse Resp BP Pulse Ox 97.9 F 79 20 125/78 98 11/28/16 11:45 11/28/16 11:45 11/28/16 11:45 11/28/16 11:45 11/28/16 11:45 Results - Labs 11/29/16 07:53 11/29/16 07:53 Abnormal Lab Results - Last 24 Hours (Table) 11/28/16 11/29/16 11/29/16 Range/Units 12:20 07:53 07:53 WBC 3.0 L (3.8-10.6) k/uL Plt Count 140 L 95 L (150-450) k/uL Lymphocytes # 0.7 L 0.5 L (1.0-4.8) k/uL Chloride 111 H (98-107) mmol/L Glucose 107 H (74-99) mg/dL Calcium 8.3 L (8.4-10.2) mg/dL Total Protein 5.4 L (6.3-8.2) g/dL Albumin 2.9 L (3.5-5.0) g/dL Diabetes panel 11/28/16 11/29/16 Range/Units 12:20 07:53 Sodium 142 141 (137-145) mmol/L Potassium 3.7 3.5 (3.5-5.1) mmol/L Chloride 106 111 H (98-107) mmol/L Carbon Dioxide 26 23 (22-30) mmol/L BUN 8 8 (7-17) mg/dL Creatinine 0.66 0.59 (0.52-1.04) mg/dL Glucose 90 107 H (74-99) mg/dL Calcium 9.2 8.3 L (8.4-10.2) mg/dL AST 33 25 (14-36) U/L ALT 41 33 (9-52) U/L Alkaline Phosphatase 86 66 (38-126) U/L Total Protein 6.6 5.4 L (6.3-8.2) g/dL Albumin 3.8 2.9 L (3.5-5.0) g/dL Calcium panel 11/28/16 11/29/16 Range/Units 12:20 07:53 Calcium 9.2 8.3 L (8.4-10.2) mg/dL Albumin 3.8 2.9 L (3.5-5.0) g/dL Pituitary panel 11/28/16 11/29/16 Range/Units 12:20 07:53 Sodium 142 141 (137-145) mmol/L Potassium 3.7 3.5 (3.5-5.1) mmol/L Chloride 106 111 H (98-107) mmol/L Carbon Dioxide 26 23 (22-30) mmol/L BUN 8 8 (7-17) mg/dL Creatinine 0.66 0.59 (0.52-1.04) mg/dL Glucose 90 107 H (74-99) mg/dL Calcium 9.2 8.3 L (8.4-10.2) mg/dL Adrenal panel 11/28/16 11/29/16 Range/Units 12:20 07:53 Sodium 142 141 (137-145) mmol/L Potassium 3.7 3.5 (3.5-5.1) mmol/L Chloride 106 111 H (98-107) mmol/L Carbon Dioxide 26 23 (22-30) mmol/L BUN 8 8 (7-17) mg/dL Creatinine 0.66 0.59 (0.52-1.04) mg/dL Glucose 90 107 H (74-99) mg/dL Calcium 9.2 8.3 L (8.4-10.2) mg/dL Total Bilirubin 0.6 0.7 (0.2-1.3) mg/dL AST 33 25 (14-36) U/L ALT 41 33 (9-52) U/L Alkaline Phosphatase 86 66 (38-126) U/L Total Protein 6.6 5.4 L (6.3-8.2) g/dL Albumin 3.8 2.9 L (3.5-5.0) g/dL
--- NOTE | 2016-11-29 14:59 | P.PN ---
Subjective 66-year-old female late 2015 was diagnosed with cholangiocarcinoma ended up going to [facility] had surgery similar to Whipple ended up having wider area resection including gallbladder heart of the liver the biliary tree and part of her gastrointestinal tract. Patient was referred to oncology and has been seen Dr. Cleary all along. She presented to the emergency department on with recurrent diarrhea with abdominal pain and right lower quadrant discomfort. Her abdominal x-ray and lab and lactic acid were elevated but she was hydrated and felt better decided to go home that time. Patient called her oncologist today complaining of recurrent abdominal pain with worsening symptoms having very bad diarrhea with slight bleeding with her diarrhea occasionally. Review her CAT scan showed some colitis around the sigmoid area. With the severity of her symptoms with the recurrent diarrhea and still high suspicion for C. difficile and infectious colitis patient was started on Flagyl IV hydration and admitted to the hospital we'll consult general surgery per her oncologist recommendation. 11/29:patient has been seen by Dr. Lopez with recommendations to continue conservative management. No plan for colonoscopy now.patient denies any nausea. She states she did eat a soft diet and tolerated this. Pain is at a # 8 out of 10 at its worse and usually at about a 6 out of 10. She does state that she feels better from yesterday. Noted platelets have dropped. she does know that she had a low platelet count when she was at [place] 11 months ago but does not know the underlying cause. Patient developed rash yesterday and Benadryl was added. Objective - Vital Signs Vital signs: Vital Signs Temp 97.7 F 11/29/16 07:00 Pulse 59 L 11/29/16 07:00 Resp 16 11/29/16 07:00 BP 144/82 11/29/16 07:00 Pulse Ox 98 11/29/16 07:00 Intake & Output 11/28/16 11/29/16 11/29/16 18:59 06:59 18:59 Intake Total 990 250 Balance 990 250 Weight 84.368 kg Intake: IV 500 Sodium Chloride 0.9% 1, 400 000 ml @ 100 mls/hr IV . Q10H JASMYNE Rx#:[id number] metroNIDAZOLE-NS PMX 500 100 mg In Saline 1 100ml.bag @ 100 mls/hr IVPB Q8HR JASMYNE Rx#:[id number] Oral 490 250 Other: Voiding Method Toilet Toilet # Voids 1 - Exam General appearance: no average body habitus, cooperative, no disheveled, no mild distress, no morbidly obese, no acute distress, no obese, no severe distress, no thin - EENT Eyes: no abnormal pupil, no anicteric sclerae, no disc margins sharp, no edentulous, no EOMI, no PERRLA, no fundus normal, no photophobia, no dentition normal, no poor dentition, no ptosis, no scleral icterus, normal appearance ENT: no hard of hearing, no hearing grossly normal, no NA/AT, normal oropharynx , no other, no pharyngeal erythema, no thrush, no tonsillar exudates, no tonsillar swelling Ears: bilateral: normal - Neck Neck: no lymphadenopathy, normal ROM, no other, no rigidity, no stridor, no thyromegaly Carotids: bilateral: upstroke normal Thyroid: bilateral: normal size - Respiratory Respiratory: bilateral: CTA, diminished, dullness - Cardiovascular Rhythm: regular Heart sounds: normal: S1, S2 Abnormal Heart Sounds: systolic murmur - Gastrointestinal Significant discomfort in the mid lower abdominal area and right lower quadrant area with the scar tissue on the right upper quadrant healing well from her last surgery. Also patient had mild epigastric discomfort. General gastrointestinal: no absent bowel sounds, no decreased bowel sounds, distended, no hepatomegaly, no hyperactive bowel sounds, no normal bowel sounds , organomegaly, no rigid, no scaphoid, no soft, no splenomegaly, tenderness, no umbilical hernia, no ventral hernia Localized gastrointestinal: tender: RLQ - Integumentary Integumentary: no calor, no cellulitis, no cyanotic, no decreased turgor, no flushed, no jaundiced, normal, no normal turgor, pale, rash, no ulcer - Neurologic Neurologic: CNII-XII intact - Musculoskeletal Musculoskeletal: gait normal, generalized weakness, strength equal bilaterally, no right sided weakness, no left sided weakness - Psychiatric Psychiatric: A&O x's 3, appropriate affect, no intact judgment & insight - Labs CBC & Chem 7: 11/29/16 07:53 11/29/16 07:53 Labs: Abnormal Lab Results - Last 24 Hours (Table) 05/31/17 06/01/17 06/01/17 Range/Units 12:20 07:53 07:53 WBC 3.0 L (3.8-10.6) k/uL Plt Count 140 L 95 L (150-450) k/uL Lymphocytes # 0.7 L 0.5 L (1.0-4.8) k/uL Chloride 111 H (98-107) mmol/L Glucose 107 H (74-99) mg/dL Calcium 8.3 L (8.4-10.2) mg/dL Total Protein 5.4 L (6.3-8.2) g/dL Albumin 2.9 L (3.5-5.0) g/dL Assessment and Plan Plan: 1 severe abdominal pain: Most likely combination of colitis, infectious versus ischemic or radiation colitis continue Flagyl continue hydration consult Dr. Lopez with no plan for colonoscopy. 2 severe diarrhea which has resolved with Pepto-Bismol. Continue IV fluids. Continue Flagyl. Consult with Dr. Lopez appreciated. 3 cholangiocarcinoma: Patient had surgery along with chemotherapy and radiation still been follow with her oncologist regularly for any possible metastasis. 4 elevated blood pressure: Continue low-salt diet no medication at this point. 5 severe GERD/GI prophylaxis: Patient will be on pantoprazole IV. 6 vitamin D deficiency: Has been on supplement therapy. 7 thrombocytopenia possibly chronic as patient has been told she has this when at [facility]. Continue to monitor closely 8 DVT prophylaxis: Knee-high JOSEE hose and Venodyne boots don't use any anticoagulation especially with the GI bleed at this point. CODE STATUS: Full code. discharge plan: Return home Impression and plan of care have been directed as dictated by the signing physician. Rubi Barker nurse practitioner acting as scribe for signing physician.
[2016-11-30 07:44] VITALS: BP 131/78; PULSE 59; TEMP 97.9
[2016-11-30] MEDS: metroNIDAZOLE-NS PMX 500 MG in SALINE 1 100ML.BAG IVPB SCH (07:55)
[2016-11-30] MEDS: PANTOPRAZOLE 40 MG/10 ML VIAL IVP SCH (07:56)
[2016-11-30 08:12] LABS: CH 30.6; CHCM 32.5; HCT 39.4 % (34.0-46.0); HDW 2.59; HGB 12.8 gm/dL (11.4-16.0); MCH 30.6 pg (25.0-35.0); MCHC 32.3 g/dL (31.0-37.0); MCV 94.7 fL (80.0-100.0); Mean Platelet Volume 7.1; RBC 4.17 m/uL (3.80-5.40); RDW 13.7 % (11.5-15.5); WBC 4.7 k/uL (3.8-10.6)
[2016-11-30 08:26] LABS: ALT 41 U/L (9-52); AST 50 U/L (14-36); Alkaline Phosphatase 83 U/L (38-126); Anion Gap 7 mmol/L; Blood Urea Nitrogen 10 mg/dL (7-17); Calcium 8.4 mg/dL (8.4-10.2); Carbon Dioxide 26 mmol/L (22-30); Chloride 107 mmol/L (98-107); Glucose 92 mg/dL (74-99); Non-African American GFR(MDRD) >60 (>60 ml/min/1.73 sqM); Potassium 3.8 mmol/L (3.5-5.1); Sodium 140 mmol/L (137-145); Total Bilirubin 0.8 mg/dL (0.2-1.3); Total Protein 6.5 g/dL (6.3-8.2)
--- NOTE | 2016-11-30 11:12 | P.PN ---
Progress Note - Text Patient is doing much better today. She did have a formed bowel movement the this morning. Still has some right lower quadrant abdominal discomfort but she states that it's light enough that the she can live with it. Its chronic in nature. Usually takes a pain pill at night for it. Tolerating a diet well. On examination the patient is awake alert in no distress. Temperature is normal. Vitals are normal. Abdomen is quite soft and benign. No tenderness in the left lower quadrant. Some mild tenderness in the right lower quadrant again right over her appendectomy scar. No hernias noted. No guarding or rebound or rigidity. Impression is all the diarrhea probably secondary to her nonspecific sigmoiditis basically asymptomatic now. Chronic right lower quadrant pain. Recommendation surgically patient can be discharged the. Continue with the medical management. Do not think a core colonoscopy is indicated at this time since she's had one within the last 2 or 3 years. With the like to see her back in the office in about the 2 weeks. Pepto-Bismol as needed if she continues to have diarrhea.
--- NOTE | 2016-11-30 15:16 | P.DS ---
Providers Date of admission: 11/28/16 15:35 Expected date of discharge: 11/30/16 Attending physician: Tung Rivera Consults: 11/28/16 15:34 Consult Physician Urgent Consulting Provider: Bruce Lopez Consult Reason/Comments: infectious colitis Do you want consulting provider notified?: Yes 11/29/16 11:31 Consult Physician Routine Consulting Provider: Rafy Cleary Consult Reason/Comments: thrombocytopenia Do you want consulting provider notified?: Yes Primary care physician: [facility] Course: 66-year-old female late 2015 was diagnosed with cholangiocarcinoma ended up going to [facility] had surgery similar to [facility]ipple ended up having wider area resection including gallbladder heart of the liver the biliary tree and part of her gastrointestinal tract. Patient was referred to oncology and has been seen Dr. Cleary all along. She presented to the emergency department on with recurrent diarrhea with abdominal pain and right lower quadrant discomfort. Her abdominal x-ray and lab and lactic acid were elevated but she was hydrated and felt better decided to go home that time. Patient called her oncologist today complaining of recurrent abdominal pain with worsening symptoms having very bad diarrhea with slight bleeding with her diarrhea occasionally. Review her CAT scan showed some colitis around the sigmoid area. With the severity of her symptoms with the recurrent diarrhea and still high suspicion for C. difficile and infectious colitis patient was started on Flagyl IV hydration and admitted to the hospital we'll consult general surgery per her oncologist recommendation. 11/29:patient has been seen by Dr. Lopez with recommendations to continue conservative management. No plan for colonoscopy now.patient denies any nausea. She states she did eat a soft diet and tolerated this. Pain is at a # 8 out of 10 at its worse and usually at about a 6 out of 10. She does state that she feels better from yesterday. Noted platelets have dropped. she does know that she had a low platelet count when she was at [place] 11 months ago but does not know the underlying cause. Patient developed rash yesterday and Benadryl was added. 11/30: Patient had a bowel movement this morning. She is feeling much better. Dr. Lopez has reevaluated and she is cleared for discharge home today. Plan for outpatient colonoscopy at a later time. Platelet is currently at [address] Cleary is on consult but has not seen the patient at this time. Patient is anxious to be discharged home and will set up outpatient follow-up with Dr. Cleary. Blood culture showing no growth at 24 hours. Discharge diagnoses: 1 severe abdominal pain due to colitis, infectious versus ischemic or radiation colitis 2 severe diarrhea which has resolved with Pepto-Bismol. 3 cholangiocarcinoma: Patient had surgery along with chemotherapy and radiation still been follow with her oncologist regularly for any possible metastasis. 4 elevated blood pressure: Continue low-salt diet no medication at this point. 5 severe GERD 6 vitamin D deficiency 7 thrombocytopenia possibly chronic as patient has been told she has this when at [facility]. Discharge plan: Return home Impression and plan of care have been directed as dictated by the signing physician. Rubi Barker nurse practitioner acting as scribe for signing physician. Patient Condition at Discharge: Good Plan - Discharge Summary New Discharge Prescriptions: New metroNIDAZOLE [Flagyl] 500 mg PO Q8HR #30 tab Continue Lysine 500 mg PO DAILY Cyanocobalamin [Vitamin B-12] 500 mcg PO DAILY Vitamin C/Biotin [Hair, Skin and Nails] 1 tab PO DAILY Cholecalciferol (Vitamin D3) [Vitamin D3] 2,000 unit PO DAILY Discontinued Ibuprofen [Motrin] 200 mg PO Q6HR PRN PRN Reason: Pain Discharge Medication List Cholecalciferol (Vitamin D3) [Vitamin D3] 2,000 unit PO DAILY 11/26/16 [History] Cyanocobalamin [Vitamin B-12] 500 mcg PO DAILY 11/26/16 [History] Lysine 500 mg PO DAILY 11/26/16 [History] Vitamin C/Biotin [Hair, Skin and Nails] 1 tab PO DAILY 11/26/16 [History] metroNIDAZOLE [Flagyl] 500 mg PO Q8HR #30 tab 11/30/16 [Rx] Follow up Appointment(s)/Referral(s): Rafy Cleary MD [STAFF PHYSICIAN] - 12/07/16 12:15 pm (patient will see at [facility]) Breann Morrison MD [Primary Care Provider] - 1 Week ('s office closes at noon on fridays.patient will have to call and schedule own appt.) Activity/Diet/Wound Care/Special Instructions: Nicki has been called into the patient's pharmacy from the doctor's office. Discharge Disposition: HOME SELF-CARE
== END 2016-11-30 15:15 | disposition home or self-care (01) | DRG 394 ==
LOC: EC 11:14 → 5MS5E 15:35
PROVIDERS: ADMIT Internal Medicine; ATTEND Internal Medicine
DX: K52.0 Gastroenteritis and colitis due to radiation (principal); A09 Infectious gastroenteritis and colitis, unspecified; K55.9 Vascular disorder of intestine, unspecified; D69.6 Thrombocytopenia, unspecified; E55.9 Vitamin D deficiency, unspecified; F17.200 Nicotine dependence, unspecified, uncomplicated; K21.9 Gastro-esophageal reflux disease without esophagitis; G89.29 Other chronic pain; K57.90 Diverticulosis of intestine, part unspecified, without perforation or abscess without bleeding; R21 Rash and other nonspecific skin eruption; R03.0 Elevated blood-pressure reading, without diagnosis of hypertension; Z85.09 Personal history of malignant neoplasm of other digestive organs; Z88.0 Allergy status to penicillin; Z88.2 Allergy status to sulfonamides; Z91.041 Radiographic dye allergy status; Z82.49 Family history of ischemic heart disease and other diseases of the circulatory system; Y84.2 Radiological procedure and radiotherapy as the cause of abnormal reaction of the patient, or of later complication, without mention of misadventure at the time of the procedure; Y73.1 Therapeutic (nonsurgical) and rehabilitative gastroenterology and urology devices associated with adverse incidents
CPT/HCPCS: 36415; 80053; 81003; 82150; 83605; 83690; 85025; 85027; 87040

== ENCOUNTER 2017-03-27 22:51 | Emergency (ER) | payer OTHER ==
[2017-03-27 23:10] VITALS: TEMP 97.4
[2017-03-27] MEDS ORDERED: SODIUM CHLORIDE 0.9% 1,000 ML IV STA (23:19)
--- NOTE | 2017-03-27 23:38 | ED ---
General Adult HPI - General Chief complaint: Nausea/Vomiting/Diarrhea Stated complaint: NVD Time Seen by Provider: 03/27/17 23:08 Source: EMS, RN notes reviewed Mode of arrival: EMS Limitations: physical limitation - History of Present Illness Initial comments: Patient 66-year-old female status post exploratory laparotomy 6 days, who presents emergency room today with chief complaint of increased nausea vomiting over the last 2 days. Patient states that she does have an NG tube placed. States that she did talk to her surgeon and they were worried that the NG tube may be placed. States she's had a minimal amount of drainage coming from this NG tube. Patient says she's had increased nausea vomiting. Patient does admit to abdominal pain with some pain going into her back. She denies any other complaints or symptoms. Patient denies any recent fever, chills, shortness of breath, chest pain, numbness or tingling, dysuria or hematuria, constipation or diarrhea, headaches or visual changes, or any other complaints. - Related Data Home Medications Medication Instructions Recorded Confirmed Acetaminophen [Tylenol Arthritis] 650 mg PO Q4H PRN 03/27/17 03/27/17 Hydrocodone/Acetaminophen 15 ml PO Q4H PRN 03/27/17 03/27/17 [Hydrocodon-Acetamin 7.5-325/15] Omeprazole 20 mg PO BID 03/27/17 03/27/17 Ondansetron [Zofran ODT] 4 mg PO Q6H PRN 03/27/17 03/27/17 Allergies Allergy/AdvReac Type Severity Reaction Status Date / Time ciprofloxacin Allergy Intermediate Unknown Verified 03/27/17 23:32 amoxicillin [From Augmentin] Allergy Unknown Verified 03/27/17 23:32 clavulanic acid Allergy Unknown Verified 03/27/17 23:32 [From Augmentin] Iodinated Contrast- Oral and Allergy Unknown Verified 03/27/17 23:32 IV Dye [Iodinated Contrast Media - Oral and] Sulfa (Sulfonamide Allergy Unknown Verified 03/27/17 23:32 Antibiotics) Review of Systems ROS Statement: Those systems with pertinent positive or pertinent negative responses have been documented in the HPI. ROS Other: All systems not noted in ROS Statement are negative. Past Medical History Past Medical History: Cancer, Liver Disease History of Any Multi-Drug Resistant Organisms: None Reported Past Surgical History: Appendectomy, Section Additional Past Surgical History / Comment(s): liver gallbladder ca surg , eye , nasal Past Anesthesia/Blood Transfusion Reactions: No Reported Reaction Past Psychological History: No Psychological Hx Reported Smoking Status: Light tobacco smoker Past Alcohol Use History: None Reported Past Drug Use History: None Reported - Past Family History Mother Family Medical History: Coronary Artery Disease (CAD) General Exam - General Exam Comments Initial Comments: General: The patient is awake and alert, in no distress, and does not appear acutely ill. Eye: Pupils are equal, round and reactive to light, extra-ocular movements are intact. No nystagmus. There is normal conjunctiva bilaterally. No signs of icterus. Ears, nose, mouth and throat: There are moist mucous membranes and no oral lesions. Neck: The neck is supple, there is no tenderness or JVD. Cardiovascular: There is a regular rate and rhythm. No murmur, rub or gallop is appreciated. Respiratory: Lungs are clear to auscultation, respirations are non-labored, breath sounds are equal. No wheezes, stridor, rales, or rhonchi. Gastrointestinal: Surgical incision midline. Appears to be healing well. Mild discomfort in the upper abdomen on palpation. No tenderness or guarding. Musculoskeletal: Normal ROM, no tenderness. Strength 5/5. Sensation intact. Pulses equal bilaterally 2+. Neurological: A&O x 3. CN II-XII intact, There are no obvious motor or sensory deficits. Coordination appears grossly intact. Speech is normal. Skin: Skin is warm and dry and no rashes or lesions are noted. Psychiatric: Cooperative, appropriate mood & affect, normal judgment. Limitations: physical limitation Course Vital Signs 03/27/17 03/28/17 03/28/17 22:58 00:04 01:10 Temperature 97.4 F L Pulse Rate 92 91 91 Respiratory 24 18 18 Rate Blood Pressure 152/73 140/71 143/70 O2 Sat by Pulse 93 L 99 96 Oximetry 03/28/17 03/28/17 02:13 03:10 Temperature Pulse Rate 89 90 Respiratory 20 18 Rate Blood Pressure 139/71 152/86 O2 Sat by Pulse 96 98 Oximetry - Reevaluation(s) Reevaluation #1: 03/27/17 23:37 Patient did have an NG tube to low intermittent suction here in the emergency room. Sec greater than 300 mL out. She states that her pains improving already. Patient will have labs and be continued to be monitored. Medical Decision Making - Medical Decision Making Case discussed in detail with attending physician Dr. Abarca. Patient reexamined at this time shows no signs of distress resting comfortably. Patient labs been reviewed. Patient's chemistry was unable be obtained as the blood work was diluted on the lab. They try to redraw the patient she stated she did not want to have her blood drawn again. Patient does have a terminal illness with diffuse cancer through the abdomen recently diagnosed on an exploratory laparotomy just 6 days ago. Patient x-ray did reveal a NG tube that appeared to be curled in the stomach. Multiple attempts made by nursing staff to help pull this back. Eventually the NG tube was taken out completely and a new NG tube placed. Repeat exam and x-ray showed that NG tube is no well placed. Patient has had a large amount of drainage coming from the NG tube. She states she's feeling much better since replacement. Patient states she does not want to be admitted should like to be discharged home. She strongly advised follow- up with her surgeon tomorrow. Patient will be discharged. - Lab Data Result diagrams: 03/27/17 23:33 Lab Results 03/27/17 03/27/17 03/27/17 Range/Units 23:33 23:33 23:52 WBC 9.9 (3.8-10.6) k/uL RBC 3.15 L (3.80-5.40) m/uL Hgb 10.4 L (11.4-16.0) gm/dL Hct 33.9 L (34.0-46.0) % MCV 107.4 H (80.0-100.0) fL MCH 33.1 (25.0-35.0) pg MCHC 30.8 L (31.0-37.0) g/dL RDW 15.5 (11.5-15.5) % Plt Count 235 (150-450) k/uL Neutrophils % 88 % Lymphocytes % 4 % Monocytes % 5 % Eosinophils % 1 % Basophils % 0 % Neutrophils # 8.7 H (1.3-7.7) k/uL Lymphocytes # 0.4 L (1.0-4.8) k/uL Monocytes # 0.5 (0-1.0) k/uL Eosinophils # 0.1 (0-0.7) k/uL Basophils # 0.0 (0-0.2) k/uL Manual Slide Review Performed Hypochromasia Marked Macrocytosis Marked PT 12.1 H (9.0-12.0) sec INR 1.2 H (<1.2) APTT 27.5 (22.0-30.0) sec Urine Color Yellow Urine Appearance Cloudy H (Clear) Urine pH 7.0 (5.0-8.0) Ur Specific [place] 1.023 (1.001-1.035) Urine Protein Trace H (Negative) Urine Glucose (UA) Negative (Negative) Urine Ketones Negative (Negative) Urine Blood Negative (Negative) Urine Nitrite Negative (Negative) Urine Bilirubin 1+ H (Negative) Urine Urobilinogen 8.0 (<2.0) mg/dL Ur Leukocyte Esterase Trace H (Negative) Urine RBC 1 (0-5) /hpf Urine WBC 8 H (0-5) /hpf Ur Squamous Epith Cells 2 (0-4) /hpf Amorphous Sediment Rare H (None) /hpf Urine Bacteria Occasional H (None) /hpf Urine Mucus Rare H (None) /hpf Disposition Clinical Impression: Abdominal pain, Nausea & vomiting, Encounter for nasogastric (NG) tube placement Disposition: HOME SELF-CARE Condition: Stable Instructions: Abdominal Pain (ED) Additional Instructions: Please follow-up with your surgeon tomorrow. Please return to emergency room symptoms increase worsen or for any other concerns Referrals: Breann Morrison MD [Primary Care Provider] - 1-2 days Time of Disposition: 03:50
[2017-03-27 23:54] LABS: Basophils % (A) 0 %; CH 29.4; CHCM 27.6; Eosinophils # (A) 0.1 k/uL (0-0.7); Eosinophils % (A) 1 %; HCT 33.9 % (34.0-46.0); HGB 10.4 gm/dL (11.4-16.0); Hypochromasia Marked; INR 1.2 (<1.2); Luc # (Auto) 0.14; Luc % (Auto) 1; Lymphocytes # (A) 0.4 k/uL (1.0-4.8); Lymphocytes % (A) 4 %; MCH 33.1 pg (25.0-35.0); MCHC 30.8 g/dL (31.0-37.0); MCV 107.4 fL (80.0-100.0); Macrocytosis Marked; Mean Platelet Volume 9.1; Monocytes # (A) 0.5 k/uL (0-1.0); Monocytes % (A) 5 %; Neutrophils # (A) 8.7 k/uL (1.3-7.7); Neutrophils % (A) 88 %; Partial Thromboplastin Time 27.5 sec (22.0-30.0); Prothrombin Time 12.1 sec (9.0-12.0); RBC 3.15 m/uL (3.80-5.40); RDW 15.5 % (11.5-15.5); WBC 9.9 k/uL (3.8-10.6); WBC (Perox) 10.28
[2017-03-28 00:11] LABS: Amorphous Sediment,Urine Rare /hpf; Appearance,Urine Cloudy (Clear); Bacteria,Urine Occasional /hpf; Bilirubin,Urine 1+ (Negative); Glucose,Urine (UA) Negative (Negative); Ketones,Urine Negative (Negative); Leukocyte Esterase,Urine Trace (Negative); Mucus,Urine Rare /hpf; Nitrite,Urine Negative (Negative); Particle Count 156517; Protein,Urine Trace (Negative); RBC,Urine 1 /hpf (0-5); Specific Gravity,Urine 1.023 (1.001-1.035); Squamous Epithelial Cell,Urine 2 /hpf (0-4); UA Billing (MACRO vs. MICRO) MICRO; WBC,Urine 8 /hpf (0-5)
[2017-03-28 00:29] LABS: Manual Review Performed
--- NOTE | 2017-03-28 00:42 | XR ---
EXAMINATION TYPE: XR KUB DATE OF EXAM: 03/28/2017 COMPARISON: 11/26/2016 HISTORY: Nausea and vomiting TECHNIQUE: 2 views FINDINGS: There is nasogastric tube looped in the stomach. There is no sign of intestinal obstruction or pneumoperitoneum. There is no evidence of a mass. There is mild elevated left diaphragm. There is density in the left colon that could be medication or old contrast. There are no definite pathologic calcifications over the kidneys. IMPRESSION: Nonacute abdomen. No free air. Slight elevated left diaphragm could relate to partial par alysis. This appears new compared to old exam.
[2017-03-28] MEDS ORDERED: ONDANSETRON 4 MG/2 ML VIAL IVP STA (01:08)
[2017-03-28] MEDS ORDERED: MORPHINE SULFATE 4 MG/ML SYRINGE IV STA ×2 (01:08→02:16)
--- NOTE | 2017-03-28 03:01 | XR ---
EXAM: XR Abdomen, 1 View CLINICAL HISTORY: Reason: NG placement TECHNIQUE: Single portable upright view of the abdomen. COMPARISON: 03/28/17 at 0027 hours. FINDINGS: Note exam is limited by its portable nature and the patient body habitus. Lower thorax: Unchanged appearance of the lung bases including elevated left diaphragm through which there is again air present, presumably at the left base and unchanged from the earlier exam. Gastrointestinal tract: There is again retained contrast within colon in the upper abdomen. No dilation. Bones/joints: Stable. Soft tissues: Multiple midline skin vance are again present as are right upper quadrant surgical clips. Tubes, lines and devices: NG tube is again seen coursing into the stomach, where it is again looped with its tip again located medially within the left upper quadrant. IMPRESSION: No definite interval change including position of the NG tube, as above.
--- NOTE | 2017-03-28 03:05 | XR ---
EXAM: XR Abdomen, 1 View CLINICAL HISTORY: Reason: NG tube placement TECHNIQUE: Single upright view of the abdomen at 0241 hrs. COMPARISON: Earlier exam at 0221 hrs. of the same date. FINDINGS: Gastrointestinal tract: There is again some retained contrast within nondilated colon. Bones/joints: Stable. Soft tissues: Multiple midline skin vance are again noted. Tubes, lines and devices: The NG tube appears to have been repositioned and/or withdrawn somewhat and is no longer looped upon itself. Its sidehole is located below the GE junction and its tip is again located medially within the left upper quadrant. Possible surgical drain versus support structures or soft tissue shadows are seen laterally over the left mid abdomen. IMPRESSION: Apparent interval withdrawal or repositioning of the NG tube, with its tip again located within the proximal stomach, medially within the left upper quadrant.
--- NOTE | 2017-03-28 03:59 | XR ---
EXAM: XR Abdomen, 1 View CLINICAL HISTORY: Reason: NG tube placement TECHNIQUE: Single portable view of the abdomen, again excluding the pelvis. COMPARISON: Earlier exams at 0241 hrs. and 0221 hrs. the same day. FINDINGS: Lower thorax: Stable appearance of the lung bases. Gastrointestinal tract: Retained contrast within colonic loops again present. Bones/joints: Stable. Soft tissues: There are again midline skin vance. Tubes, lines and devices: The NG tube has been withdrawn, and its sidehole is no longer below the GE junction, rather projects above the expected level of the GE junction. Its tip is probably located just below the GE junction within the medial left upper quadrant. IMPRESSION: Interval withdrawal of the NG tube, with its side hole no longer below the expected level of the GE junction, and which should be repositioned. [employer] 03/28/17 04:01 Call Doctor Regarding Life Threatening Misplaced Tube or Line, called Dr. Abarca on 03/28 04:00 (-04:00)
[2017-03-28 04:28] VITALS: BP 116/64; PULSE 92; RESP 16
== END 2017-03-28 04:27 | disposition home or self-care (01) ==
LOC: EC 22:51
DX: R10.10 Upper abdominal pain, unspecified (principal); R11.2 Nausea with vomiting, unspecified; Z43.1 Encounter for attention to gastrostomy; F17.200 Nicotine dependence, unspecified, uncomplicated; Z90.49 Acquired absence of other specified parts of digestive tract; Z98.890 Other specified postprocedural states; Z88.1 Allergy status to other antibiotic agents; Z88.0 Allergy status to penicillin; Z91.041 Radiographic dye allergy status; Z88.2 Allergy status to sulfonamides; Z79.899 Other long term (current) drug therapy
CPT/HCPCS: 36415; 93005; 85025; 85610; 85730; 81001; 74000 ×2; 99285; 96374; 96376; 96375; 96361; J2270; J2405; 80053; 82150; 83690

== ENCOUNTER 2017-04-05 03:02 | Emergency (ER) | payer OTHER ==
[2017-04-05 03:10] VITALS: TEMP 97.6
--- NOTE | 2017-04-05 03:22 | ED ---
General Adult HPI - General Chief complaint: Recheck/Abnormal Lab/Rx Stated complaint: NG tube came out Time Seen by Provider: 04/05/17 03:12 Source: patient, RN notes reviewed Mode of arrival: wheelchair Limitations: no limitations - History of Present Illness Initial comments: 66-year-old female with metastatic biliary carcinoma and permanent NG tube presents with nausea vomiting and dislodged NG tube. Patient states she was in bed, rolled over, and NG tube came out. Patient is on palliative treatment for her cancer. She is requesting that her NG tube be placed back. She has gastric outlet obstruction secondary to her carcinoma and requires 24 7 drainage of her stomach contents via NG tube. - Related Data Home Medications Medication Instructions Recorded Confirmed Acetaminophen [Tylenol Arthritis] 650 mg PO Q4H PRN 03/27/17 03/27/17 Hydrocodone/Acetaminophen 15 ml PO Q4H PRN 03/27/17 03/27/17 [Hydrocodon-Acetamin 7.5-325/15] Omeprazole 20 mg PO BID 03/27/17 03/27/17 Ondansetron [Zofran ODT] 4 mg PO Q6H PRN 03/27/17 03/27/17 Allergies Allergy/AdvReac Type Severity Reaction Status Date / Time ciprofloxacin Allergy Intermediate Unknown Verified 04/05/17 03:10 amoxicillin [From Augmentin] Allergy Unknown Verified 04/05/17 03:10 clavulanic acid Allergy Unknown Verified 04/05/17 03:10 [From Augmentin] Iodinated Contrast- Oral and Allergy Unknown Verified 04/05/17 03:10 IV Dye [Iodinated Contrast Media - Oral and] Sulfa (Sulfonamide Allergy Unknown Verified 04/05/17 03:10 Antibiotics) Review of Systems ROS Statement: Those systems with pertinent positive or pertinent negative responses have been documented in the HPI. ROS Other: All systems not noted in ROS Statement are negative. Past Medical History Past Medical History: Cancer, Liver Disease Additional Past Medical History / Comment(s): hilar cholangiocarcinoma. History of Any Multi-Drug Resistant Organisms: None Reported Past Surgical History: Appendectomy, Section Additional Past Surgical History / Comment(s): liver gallbladder ca surg , eye , nasal Past Anesthesia/Blood Transfusion Reactions: No Reported Reaction Past Psychological History: No Psychological Hx Reported Smoking Status: Light tobacco smoker Past Alcohol Use History: None Reported Past Drug Use History: None Reported - Past Family History Mother Family Medical History: Coronary Artery Disease (CAD) General Exam Limitations: no limitations General appearance: alert, in distress Head exam: Present: atraumatic, normocephalic Eye exam: Present: normal appearance, scleral icterus ENT exam: Present: normal exam Neck exam: Present: normal inspection Respiratory exam: Present: normal lung sounds bilaterally. Absent: respiratory distress Cardiovascular Exam: Present: regular rate, normal rhythm GI/Abdominal exam: Present: soft, distended Extremities exam: Present: normal inspection, normal capillary refill. Absent: pedal edema Neurological exam: Present: alert, oriented X3 Psychiatric exam: Present: normal affect, normal mood Skin exam: Present: warm, dry. Absent: cyanosis, diaphoretic Course Vital Signs 04/05/17 03:06 Temperature 97.6 F Pulse Rate 97 Respiratory 16 Rate Blood Pressure 125/56 O2 Sat by Pulse 96 Oximetry - Reevaluation(s) Reevaluation #1: 04/05/17 04:13 ALLERGY to his replaced by nursing staff, approximately 600 mL of gastric content is obtained Reevaluation #2: 04/05/17 04:13 On reevaluation patient is feeling better. Medical Decision Making - Medical Decision Making 66-year-old female presenting with dislodged NG-tube. NG-tube is replaced. Approximately 600 mL of gastric content is obtained. X-ray reviewed by myself shows NG tube into the stomach. The depth of the tube was replaced at the same level as previous NG tube. According to the patient this is where it functions best. Patient is currently on palliative care for her cancer. Patient has no other complaints. She does not want to be admitted or receive any further treatment or evaluation. Patient wishes to be discharged home. She will follow-up with her primary care and oncologist. She will return to the emergency department with any new complaints or issues. Disposition Clinical Impression: Encounter for nasogastric (NG) tube placement Disposition: HOME SELF-CARE Condition: Good Instructions: Acute Nausea and Vomiting (ED) Referrals: Breann Morrison MD [Primary Care Provider] - 1-2 days Time of Disposition: 04:18
[2017-04-05] MEDS ORDERED: ONDANSETRON ODT 4 MG TAB PO STA (03:39)
[2017-04-05 04:40] VITALS: BP 164/79; PULSE 78; RESP 18
--- NOTE | 2017-04-05 04:53 | XR ---
EXAM: XR Abdomen Complete, 2 or More Views CLINICAL HISTORY: Pain TECHNIQUE: Frontal view of the abdomen/pelvis with upright view of the abdomen. COMPARISON: 03/28/2017 FINDINGS: Lower thorax: The tip of an esophagogastric tube projects near the expected location of the gastroesophageal junction, its sidehole projects over the distal esophagus. Persistent elevation of the right hemidiaphragm. Intraperitoneal space: No free air. Gastrointestinal tract: Unremarkable. No dilation. Bones/joints: No acute osseous abnormality. IMPRESSION: Esophagogastric tube terminates near the gastroesophageal junction, its sidehole is in the distal esophagus. Consider advancement and repeat radiograph to confirm position prior to use. [employer] 04/05/17 05:01 Verify Receipt Verified receipt with [facility], given to Dr Fleming on 04/05 05:00 (-04:00)
== END 2017-04-05 04:39 | disposition home or self-care (01) ==
LOC: EC 03:02
DX: R11.2 Nausea with vomiting, unspecified (principal); Z46.59 Encounter for fitting and adjustment of other gastrointestinal appliance and device; F17.200 Nicotine dependence, unspecified, uncomplicated; Z85.09 Personal history of malignant neoplasm of other digestive organs; Z79.899 Other long term (current) drug therapy; Z88.0 Allergy status to penicillin; Z88.1 Allergy status to other antibiotic agents; Z88.2 Allergy status to sulfonamides; Z91.041 Radiographic dye allergy status
CPT/HCPCS: 74000; 99283

== ENCOUNTER 2017-04-08 12:58 | Emergency (ER) | payer OTHER ==
[2017-04-08 13:14] VITALS: RESP 18; TEMP 98.4
[2017-04-08] MEDS ORDERED: MORPHINE SULFATE 4 MG/ML SYRINGE IV STA (13:42)
[2017-04-08] MEDS ORDERED: SODIUM CHLORIDE 0.9% 1,000 ML IV STA ×2 (13:42)
[2017-04-08] MEDS ORDERED: MORPHINE SULFATE 2 MG/ML SYRINGE IVP STA (13:55)
--- NOTE | 2017-04-08 13:55 | ED ---
Nausea/Vomiting/Diarrhea HPI - General Chief complaint: Nausea/Vomiting/Diarrhea Stated complaint: N&V abnormal Labs Time Seen by Provider: 04/08/17 13:28 Source: patient, EMS Mode of arrival: EMS Limitations: no limitations - History of Present Illness Initial comments: she was a history of multiple abdominal surgeries, cholangiocarcinoma, presents for nausea and vomiting. States she had surgery on Mar 21 [facility], exploratory laparotomy showed diffuse cancer, states "they close me back up and said there is nothing they can do". patient states she was sent home with an NG tube and TPN via PICC line. States she was given 6 months to live, states she discussed palliative care, has an upcoming appointment has not been enrolled yet. TSH is routine blood work done this morning at home, states she think there was an abnormality, possibly low potassium. Patient states this has been a recurrent issue for her over the past month, states she has nausea and vomiting whenever her NG tube stops working, it had stopped working this morning. Patient also notes constipation, states she is on morphine at home, does take Senokot Colace and Dulcolax. States she used a suppository yesterday, had one very small hard stool this morning. Patient complains of chronic lower abdominal pain, states it's exact same pain she always has. Denies fevers, chills. MD complaint: nausea, vomiting Onset/Timin -: days(s) Description of Vomiting: food contents, watery Associated Abdominal Pain: No Severity: moderate Consistency: intermittent Worsens with: eating - Related Data Home Medications Medication Instructions Recorded Confirmed Ondansetron [Zofran ODT] 4 mg PO Q6H 03/27/17 04/08/17 MORPHINE ORAL SOLN 20mg/mL 5 mg PO Q4HR PRN 04/08/17 04/08/17 [Roxanol Oral Soln Conc 20MG/ML] Allergies Allergy/AdvReac Type Severity Reaction Status Date / Time ciprofloxacin Allergy Intermediate Unknown Verified 04/08/17 14:13 amoxicillin [From Augmentin] Allergy Unknown Verified 04/08/17 14:13 clavulanic acid Allergy Unknown Verified 04/08/17 14:13 [From Augmentin] Iodinated Contrast- Oral and Allergy Unknown Verified 04/08/17 14:13 IV Dye [Iodinated Contrast Media - Oral and] Sulfa (Sulfonamide Allergy Unknown Verified 04/08/17 14:13 Antibiotics) Review of Systems ROS Statement: Those systems with pertinent positive or pertinent negative responses have been documented in the HPI. ROS Other: All systems not noted in ROS Statement are negative. Constitutional: Reports: weakness (generalized, chronic.). Denies: fever, chills Eyes: Denies: vision change ENT: Denies: throat pain, congestion Respiratory: Denies: cough, dyspnea Cardiovascular: Denies: chest pain, palpitations Endocrine: Reports: fatigue Gastrointestinal: Reports: abdominal pain (Chronic), nausea, vomiting, constipation. Denies: diarrhea, hematemesis, melena, hematochezia Genitourinary: Denies: urgency, dysuria, frequency, hematuria, discharge Musculoskeletal: Denies: back pain Skin: Denies: rash Neurological: Denies: headache, confusion Past Medical History Past Medical History: Cancer, Liver Disease Additional Past Medical History / Comment(s): hilar cholangiocarcinoma. History of Any Multi-Drug Resistant Organisms: None Reported Past Surgical History: Appendectomy, Section Additional Past Surgical History / Comment(s): liver gallbladder ca surg , eye , nasal Past Anesthesia/Blood Transfusion Reactions: No Reported Reaction Past Psychological History: No Psychological Hx Reported Smoking Status: Light tobacco smoker Past Alcohol Use History: None Reported Past Drug Use History: None Reported - Past Family History Mother Family Medical History: Coronary Artery Disease (CAD) General Exam - General Exam Comments Initial Comments: sitting up in bed, appears fatigued. Conversing normally. Alert. Appears mildly ill. Well-nourished well-developed. Limitations: no limitations General appearance: alert Head exam: Present: atraumatic, normocephalic Eye exam: Present: normal appearance, PERRL, EOMI ENT exam: Present: other (NG tube in nose, dark brown output, appears to be functioning well while hooked up to wall suction.) Neck exam: Present: normal inspection Respiratory exam: Present: normal lung sounds bilaterally. Absent: respiratory distress, wheezes, rales Cardiovascular Exam: Present: regular rate, normal rhythm GI/Abdominal exam: Present: soft, other (mild distention, mild generalized tenderness. upper abdominal scar, clean dry intact, Steri-Strips in place. No drainage or surrounding erythema.). Absent: guarding, rebound, rigid Extremities exam: Present: normal inspection Neurological exam: Present: alert, oriented X3, CN II-XII intact Skin exam: Present: warm, dry, intact, normal color. Absent: rash, pallor Course Vital Signs 04/08/17 04/08/17 04/08/17 13:00 14:02 14:42 Temperature 98.4 F Pulse Rate 96 93 100 Respiratory 18 18 18 Rate Blood Pressure 113/64 116/65 112/59 O2 Sat by Pulse 96 93 L 92 L Oximetry 04/08/17 04/08/17 04/08/17 15:38 16:39 17:50 Temperature 98.4 F Pulse Rate 100 94 90 Respiratory 18 18 18 Rate Blood Pressure 107/65 103/69 100/58 O2 Sat by Pulse 97 97 98 Oximetry Medical Decision Making - Medical Decision Making Pt's symptoms and presentation appear to be chronic/recurrent in nature. patient drink water on arrival, will make patient nothing by mouth. Patient NG tube appears to be functioning well at this time, we'll continue with NG tube management for nausea. Will 1L bolus, maintenance fluids ordered. states patient drinks copious amounts of Verners and water home. Which she then typically vomits back up. the patient need to keep nothing by mouth at this time, as patient is nauseated and vomiting. Patient has prolonged QT on EKG, 526 QTc. Sinus tachycardia with premature atrial complexes. LFTs significantly elevated, similar to lab test on this morning. Patient had recent abdominal surgery at [facility]. Patient has a history of significant surgery including resection of liver, bile ducts, as well as bypass of the pylorus according to . notes that patient's intermittent suction machine at home for NG tube has not been working properly. This is a recurrent problem, states she has been admitted to the hospital previously for similar symptoms when NG tube was not functioning properly. Patient state they have spoken with palliative care PA, however they have not enrolled in palliative care yet. Potassium 2.5, replaced 60 mEq via NG tube, 30 mEq over 3 hours via peripheral IV. Patient with 2 intermittent runs of SVT, heart rate approximately 180 on monitor , resolve spontaneously. Today with IV hydration and electrolyte replacement. Patient denies chest pain or palpitations. KUB shows NG tube in the esophagus, NG tube contents [address] of the abdomen to rule out bowel obstruction given patient's history of constipation and nausea and vomiting. patient is adamant about trying to drink at this time, patient's has been bringing her water from the waiting room. He splay to patient that drinking fluids will worsen her symptoms. Patient agrees to eat ice chips only. CT shows significant ascites, possible GE junction obstruction, NG tube still in the distal esophagus. spoke with on-call admitting physician at this hospital, he requests patient's surgeon at [facility] be contacted for possible transfer. Pt and updated with results and plan for discussion of treatment plan and transfer with patient's surgeons. 17:45 with a [facility] transfer team, patient likely require transfer given recent surgery at that facility, patient follows with surgeons Dr. Young and Dr. Roblero, a/w call back. the patient's surgeon Dr. Young, updated with patient condition and results, he states patient likely requires palliative or hospice, however given that she has not yet enrolled he agrees with her being transferred to [facility] for discussion of management options. he requests transfer to the ER, will assess patient there and triage to proper admission unit. Spoke with [facility] emergency physician Dr. Delacruz, the patient condition results, Accepts transfer to [facility] ER. patient updated with plan. She Agrees to transfer, understands risks and benefits. Patient's has left ER, he was called on his cell phone and updated with plan for transfer, he understands and agrees with risks and benefits of transfer. Pt transferred to [facility] ER via [facility] ambulance - Lab Data Result diagrams: 04/08/17 14:04 04/08/17 14:04 Lab Results 04/08/17 04/08/17 Range/Units 14:04 14:04 WBC 18.0 H (3.8-10.6) k/uL RBC 3.26 L (3.80-5.40) m/uL Hgb 9.5 L (11.4-16.0) gm/dL Hct 30.9 L (34.0-46.0) % MCV 94.8 (80.0-100.0) fL MCH 29.2 (25.0-35.0) pg MCHC 30.8 L (31.0-37.0) g/dL RDW 14.5 (11.5-15.5) % Plt Count 406 (150-450) k/uL Neutrophils % 84 % Lymphocytes % 5 % Monocytes % 8 % Eosinophils % 2 % Basophils % 0 % Neutrophils # 15.1 H (1.3-7.7) k/uL Lymphocytes # 0.8 L (1.0-4.8) k/uL Monocytes # 1.5 H (0-1.0) k/uL Eosinophils # 0.4 (0-0.7) k/uL Basophils # 0.1 (0-0.2) k/uL Hypochromasia Marked Sodium 141 (137-145) mmol/L Potassium 2.5 L* (3.5-5.1) mmol/L Chloride 91 L (98-107) mmol/L Carbon Dioxide 41 H* (22-30) mmol/L Anion Gap 9 mmol/L BUN 37 H (7-17) mg/dL Creatinine 0.60 (0.52-1.04) mg/dL Est GFR (MDRD) Af Amer >60 (>60 ml/min/1.73 sqM) Est GFR (MDRD) Non-Af >60 (>60 ml/min/1.73 sqM) Glucose 128 H (74-99) mg/dL Calcium 7.7 L (8.4-10.2) mg/dL Total Bilirubin 3.0 H (0.2-1.3) mg/dL AST 112 H (14-36) U/L ALT 106 H (9-52) U/L Alkaline Phosphatase 931 H (38-126) U/L Total Protein 5.1 L (6.3-8.2) g/dL Albumin 2.1 L (3.5-5.0) g/dL Lipase 83 (23-300) U/L Disposition Clinical Impression: Hypokalemia, Intractable nausea and vomiting Disposition: DC/TRNS INTERMEDIATE CARE FAC Referrals: Breann Morrison MD [Primary Care Provider] - 1-2 days - Out of Hospital Transfer - Req. Specs Out of Hospital Transfer - Requested Specifics: Telemetry Unit (patient transferred to [facility].)
[2017-04-08 14:27] LABS: ALT 106 U/L (9-52); AST 112 U/L (14-36); Alkaline Phosphatase 931 U/L (38-126); Blood Urea Nitrogen 37 mg/dL (7-17); Calcium 7.7 mg/dL (8.4-10.2); Glucose 128 mg/dL (74-99); Non-African American GFR(MDRD) >60 (>60 ml/min/1.73 sqM); Sodium 141 mmol/L (137-145); Total Protein 5.1 g/dL (6.3-8.2)
--- NOTE | 2017-04-08 14:31 | XR ---
Abdomen HISTORY: Pain, nausea and vomiting, constipation Frontal view of the abdomen submitted. Exam correlated to prior exam 03/28/2017. Patient was unable to cooperate for the entire exam. NG tube shows the distal tip within the esophagus. There is elevation of the left hemidiaphragm. Ther e are overlying cardiac leads. IMPRESSION: Distal tip of the NG tube likely within the esophagus.
[2017-04-08 14:34] LABS: Anion Gap 9 mmol/L; Basophils # (A) 0.1 k/uL (0-0.2); Basophils % (A) 0 %; CH 28.5; CHCM 30.2; Chloride 91 mmol/L (98-107); Eosinophils # (A) 0.4 k/uL (0-0.7); Eosinophils % (A) 2 %; HCT 30.9 % (34.0-46.0); HDW 3.14; HGB 9.5 gm/dL (11.4-16.0); Hypochromasia Marked; Luc # (Auto) 0.19; Luc % (Auto) 1; Lymphocytes # (A) 0.8 k/uL (1.0-4.8); Lymphocytes % (A) 5 %; MCH 29.2 pg (25.0-35.0); MCHC 30.8 g/dL (31.0-37.0); MCV 94.8 fL (80.0-100.0); Monocytes # (A) 1.5 k/uL (0-1.0); Monocytes % (A) 8 %; Neutrophils # (A) 15.1 k/uL (1.3-7.7); Neutrophils % (A) 84 %; RBC 3.26 m/uL (3.80-5.40); RDW 14.5 % (11.5-15.5); WBC (Perox) 17.61
[2017-04-08 14:36] LABS: Carbon Dioxide 41 mmol/L (22-30); Potassium 2.5 mmol/L (3.5-5.1)
[2017-04-08] MEDS ORDERED: POTASSIUM CHLORIDE ORAL LIQUID 40 MEQ/30 ML CUP NG-TUBE ONE (14:59)
[2017-04-08] MEDS: POTASSIUM CHLORIDE 10 MEQ in WATER FOR INJECTION 1 100ML.BAG IVPB SCH ×3 (15:37→17:45)
--- NOTE | 2017-04-08 16:59 | CT ---
EXAMINATION TYPE: CT abdomen pelvis wo con DATE OF EXAM: 04/08/2017 COMPARISON: 11/09/2016 HISTORY: Nausea, vomiting, and diarrhea. Hx of stomach and liver CA. CT DLP: 1212 mGycm Automated exposure control for dose reduction was used. TECHNIQUE: Helical acquisition of images was performed from the lung bases through the pelvis. FINDINGS: There is an apparent nasogastric tube with the tip at the gastroesophageal junction. There is enlarge ment of the lower thoracic esophagus with fluid. Heart size is normal. There is no pleural effusion. There is massive amount of ascites fluid in the abdomen. There are clips from cholecystectomy. Liver shows deformity consistent with partial resection. There is no evidence of a splenic mass. Pancreas is not well-defined. The kidneys have normal size and cont our. There is no hydronephrosis. I see no evidence of a bowel obstruction. There are probably sigmoid diverticula. There is no sign of diverticulitis. Bladder distends smoothly. Uterus is anteverted. I see no focal bone destruction. Abdominal aorta is atheromatous. There is no sign of retroperitoneal a denopathy. There is some fat stranding in the subcutaneous tissues over the anterior upper abdomen. I see no sign of free air. IMPRESSION: THERE IS NEW MASSIVE ASCITES FLUID COMPARED TO OLD EXAM. THIS COULD RELATE TO RECURRENT TUMOR. PARTIAL RESECTION OF THE LIVER APPEARS STABLE. DILATED LOWER THORACIC ESOPHAGUS WITH FLUID. NASOGASTR IC TUBE NOTED IN THE DISTAL ESOPHAGUS NEAR THE GASTROESOPHAGEAL JUNCTION. I SUSPECT OBSTRUCTION OF TH E DISTAL ESOPHAGUS. THERE IS BEEN APPARENT REPAIR OF THE VENTRAL HERNIA COMPARED TO OLD EXAM.
[2017-04-08 17:52] VITALS: BP 100/58; PULSE 90
== END 2017-04-08 20:10 ==
LOC: EC 12:58
DX: E87.6 Hypokalemia (principal); R11.2 Nausea with vomiting, unspecified; R10.9 Unspecified abdominal pain; R94.5 Abnormal results of liver function studies; F17.200 Nicotine dependence, unspecified, uncomplicated; Z85.05 Personal history of malignant neoplasm of liver; Z79.899 Other long term (current) drug therapy; Z88.1 Allergy status to other antibiotic agents; Z88.2 Allergy status to sulfonamides; Z91.041 Radiographic dye allergy status; Z88.0 Allergy status to penicillin
CPT/HCPCS: 99285 ×2; 96365 ×2; 96366 ×4; 96375 ×2; 96361 ×3; 36415; 93005; 80053; 83690; 85025; 74000; 74176; J2270; J3480